=== PATIENT | female | born 1950 | race Caucasian/White ===

== ENCOUNTER 2016-10-31 19:02 | Emergency (ER) | payer MEDICARE ==
[2016-10-31 19:26] VITALS: BP 128/85
--- NOTE | 2016-10-31 20:29 | ED ---
Laceration/Wound HPI - HPI Summary HPI Summary: 66F presents with left palmar laceration near thumb today. She was cutting up a roll and sliced her hand with the knife. She denies any numbness or tingling. Her tetanus was within the past 5 years. - History of Current Complaint Stated Complaint: HAND LAC Time Seen by Provider: 10/31/16 19:43 Pain Intensity: 7 - Allergy/Home Medications Allergies/Adverse Reactions: Allergies Allergy/AdvReac Type Severity Reaction Status Date / Time Penicillins Allergy Anaphylatic Verified 10/31/16 19:28 Shock PMH/Surg Hx/FS Hx/Imm Hx Endocrine/Hematology History: Denies: Hx Diabetes Cardiovascular History: Denies: Hx Hypertension, Hx Pacemaker/ICD History: Denies: Hx Renal Disease Musculoskeletal History: Denies: Hx Osteoporosis Sensory History: Denies: Hx Hearing Aid Psychiatric History: Denies: Hx Panic Disorder - Cancer History Cancer Type, Location and Year: BASAL CELL REMOVAL UPPER CHEST Hx Chemotherapy: No Hx Radiation Therapy: No - Surgical History Surgery Procedure, Year, and Place: tonsils/adenoids Infectious Disease History: No Infectious Disease History: Denies: Traveled Outside the [place] in Last 30 Days - Family History Known Family History: Negative: Cardiac Disease - Social History Alcohol Use: None Substance Use Type: Reports: None Smoking Status (MU): Never Smoked Tobacco Review of Systems Negative: Fever Negative: Chest Pain Negative: Shortness Of Breath Positive: Other - laceration of left palm All Other Systems Reviewed And Are Negative: Yes Physical Exam Triage Information Reviewed: Yes Vital Signs On Initial Exam: Initial Vitals Temp Pulse Resp BP Pulse Ox 97.6 F 70 16 128/85 100 10/31/16 19:18 10/31/16 19:18 10/31/16 19:18 10/31/16 19:18 10/31/16 19:18 Vital Signs Reviewed: Yes Appearance: Positive: Well-Appearing Skin: Positive: Warm, Dry, Other - 4 cm laceration over 1st metacarpel Head/Face: Positive: Normal Head/Face Inspection Eyes: Positive: Normal, Conjunctiva Clear Respiratory/Lung Sounds: Positive: Clear to Auscultation, Breath Sounds Present Cardiovascular: Positive: Normal, RRR Musculoskeletal: Positive: Strength/ROM Intact - of left hand Procedures - Laceration/Wound Repair 1 Location: Other - left hand Description: Linear Anesthesia: Local, 1.0% Length, Depth and Shape: 4 cm length Betadine Prep?: Yes Irrigated w/ Saline (ccs): 100 Laceration/Wound Explored: clean Closure: Single Layer Suture Type: Prolene - 4-0 Number of Sutures: 4 Diagnostics - Vital Signs Vital Signs Temp Pulse Resp BP Pulse Ox 10/31/16 19:18 97.6 F 70 16 128/85 100 - Laboratory Lab Statement: Any lab studies that have been ordered have been reviewed, and results considered in the medical decision making process. Laceration Repair Course/Dx - Course Course Of Treatment: 66F presents with laceration of left hand. full ROM of hand. denies foreign body, tetanus up to date. placed 4 sutures and placed bandage on hand. told to return in 10-14 days. patient understands and agrees with plan - Differential Dx Differental Diagnoses: Abrasion, Avulsion, Laceration - Clinical Impression Provider Diagnoses: Laceration of left palm Discharge - Discharge Plan Condition: Good Disposition: HOME Patient Education Materials: Care For Your Stitches (ED) Referrals: Idania Garcia MD [Primary Care Provider] - Additional Instructions: Take Tylenol or ibuprofen for pain Keep area clean and dry and wrapped for 48 hours, afterwards keep band aid on area Return to ED or primary in 10-14 days to have sutures removed Return to ED if develop signs of infection such as fever, spreading redness, or pus. Images - Images Hands: 1 - 4cm laceration
== END 2016-10-31 20:40 | disposition home or self-care (01) ==
LOC: ED 19:02
DX: S61.412A Laceration without foreign body of left hand, initial encounter (principal); W26.0XXA Contact with knife, initial encounter; Y93.9 Activity, unspecified; Y92.9 Unspecified place or not applicable
CPT/HCPCS: 12002; 99281

== ENCOUNTER 2019-02-19 12:24 | Observation (INO) | payer MEDICARE ==
--- OUTSIDE RECORDS SUMMARY | 2019-02-19 12:37 | XMS REPORT | Continuity of Care Document ---
:1950 External Reference #:[id number] Author Name DiegorosetteNataly Care Team Providers Name Role Phone Idania Garcia MD Primary Care Physician Unavailable Payers Date Identification Numbers Payment Provider Subscriber Policy Number: [id number] [facility] (Medicare) Shyla Dennison PayID: [id number] [place] [address] [address] [place] [address] Effective: 2014 Policy Number: [id number] [facility] Shyla Dennison Ppo/Epo Expires: 2015 PayID: [id number] [place] [phone] Effective: 2011 Policy Number: [id number] [facility] Shyla Dennison Expires: 2014 Group Number: [id number] [facility]n [facility] PayID: [id number] [address] [place] [phone] Advance Directives Type Date Description Status Comment MOLST 04/26/2016 MOLST Current and Verified Other Directive 03/08/2011 Health Care Proxy & Living Current and Verified Will Problems Active Problems Provider Date Insomnia Yanique Regan M.D. Onset: 03/02/2012 Right bundle branch block Yanique Regan M.D. Onset: 03/11/2013 Pure hypercholesterolemia Yanique Regan M.D. Onset: 03/11/2013 Note: ASCVD 5.3 % Osteopenia Idania Garcia M.D. 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 Onset: 04/08/2015 Arthralgia of the pelvic region and thigh Jama Ellis M.D. Onset: 2014 Essential hypertension Idania Garcia M.D. Onset: 06/29/2016 Inactive Problems Depressive disorder Yanique Regan M.D. Onset: 03/02/2012 Inactive: 03/14/2016 Resolved Problems Essential hypertension Yanique Regan M.D. Onset: 03/02/2012 Resolved: 03/26/2015 Impaired fasting glycaemia Yanique Regan M.D. Onset: 03/02/2012 Resolved: 03/26/2015 Family History Date Family Member(s) Observation Comments General Cancer General Diabetes General heart problems Father due to see PMH () Father Diabetes Father Stroke Mother due to see PMH () Mother Breast Cancer Mother Hypertension Mother Hypercholesterolemia Mother Parkinson's Disease First Daughter Lymphoma Luz Siblings see above GI issues, cardiac issues Social History Type Date Description Comments Sex Unknown Marital Status Lives With Alone Occupation Retired Teacher Tobacco Use Start: Unknown Former Cigarette End: Unknown Smoker Smoking Status Reviewed: 02/11/19 Former Cigarette Smoker ETOH Use Currently consumes 5 drinks/ week alcohol Tobacco Use Start: Unknown Patient is a former 1/2 ppd intermittent End: Unknown smoker 15 yrs , quit completely 2010 Recreational Drug Use Denies Drug Use Exercise Type/Frequency Exercises regularly Allergies, Adverse Reactions, Alerts Active Allergies Reaction Severity Comments Date Penicillins Anaphylaxis Severe 10/14/2011 Medications Active Medications SIG Qnty Indications Ordering Date Provider Sulfacetamide Sodium 2 drops to L eye 4 15ml H10.9 Chente ERico 12/05/2018 times a day for 7 Sanjay Miranda 10% Solution days Shingrix intramuscular x 1 1units Idania Garcia, 08/13/2018 50mcg/0.5ML then repeat in 4 M.D. Suspension Rec months Trazodone HCL Take One Tablet By 30tabs Adeola Patel MD 04/19/2018 50mg Mouth AT Bedtime as Tablets Needed Lisinopril Take One Tablet By 90tabs Idania Garcia, 08/25/2017 5mg Mouth Every Day M.D. Tablets Blood Pressure as needed 1units I10 Idania Garcia, 04/26/2016 Monitor M.D. Digital/Automatic Misc Magnesium Citrate 1 by mouth once a Unknown day 200mg Tablets Test/Estriol Twice weekly via Unknown Compound vagina 0.5mg/6M Hair Skin And Nails daily Unknown Formula Tablets Echinacea 1 by mouth every day Unknown Comb/Arias Seal 10 days on 10 days off Capsules Glucosamine 1 daily Unknown Chondroitin Complex Capsules Ashwaghandi qd Unknown Saw Screven Extract 1 po daily Unknown 160mg Daily Total One 1 po qd Unknown Adrenal Health 1 po qd Unknown Fish Oil 1 po qd Unknown Tumeric 1 po daily Unknown 500mg History Medications Azithromycin two tabs day one, 6tabs Radha Rodriguez, 08/17/2018 - 250mg one daily till gone N.P. 10/02/2018 Tablets Lisinopril take 1 tablet 90tabs Idania Garcia, 05/11/2016 - 5mg Tablets orally once a day M.D. 12/27/2016 Cipro 1 tablet by mouth 6tabs N39.0 Tao Carlos, 03/18/2016 - 250mg Tablets twice a day x's 3 [employer] 03/21/2016 days Temazepam once at night for 30caps Idania Garcia, 04/08/2015 - 7.5mg sleep M.D. 09/29/2015 Capsules Vivotif Princess Vaccine 1 cap by mouth QS V65.9 Idania Garcia, 07/29/2014 - every other day x 4 M.D. 02/26/[address] doses 10 days before travel Ciprofloxacin-Ciprofl twice a day x 7 14tabs V65.9 Idania Garcia, 2013 - ox HCL ER days as needed for M.D. 07/29/2014 500mg Tablets travellers diarrhea ER 24HR Ciprofloxacin HCL 1 tab by mouth 14tabs Idania Garcia, 07/29/2014 - 500mg twice a day X 7 M.D. 02/26/2015 Tablets days as needed for traveller's diarrhea Lisinopril 1 by mouth every Rick Ochoa 03/12/2014 - 2.5mg day Sanjay Borrego,FACP 03/16/2014 Tablets Progesterone Cream apply topically Yanique Regan, 09/11/2013 - 2mg qday M.D. 03/12/2014 Aspirin Ec 1 po qd 90tabs Yanique Regan, 04/09/2013 - 81mg Tablets M.D. 09/11/2013 Lisinopril take 1 tablet 30tabs Rick Ochoa 06/04/2012 - 5mg Tablets orally once a day Sanjay Borrego,FACP 03/12/2014 Venlafaxine HCL 1 po qd 30tabs 311 Yanique Jass, 03/02/2012 - 37.5mg M.D. 06/04/2012 Tablets Venlafaxine HCL ER Take 1 tablet daily 30caps 311 Yanique Regan, 11/23/2011 - 75mg M.D. 06/04/2012 Caps ER 24HR Hemorrhoidal-HC Apply 1 application 30gm 455.3 Yanique Regan, 11/23/2011 - 2.5% topically to M.D. 09/29/2015 Cream affected area 3 times per day for hemorrhoids Trazodone HCL Take One Tablet By 30tabs Idania Garcia, - 50mg Mouth AT Bedtime as M.D. 04/15/2018 Tablets Needed Turmeric Curcumin 1 tab a day by Unknown - mouth 12/24/2016 Capsules Uzbek Herbs Unknown - 03/31/2016 Licorice Root Plus Off This X 5 Weeks Unknown - 06/29/2016 Caltrate/Vit D 3 1 po qd Unknown - (600) 06/29/2016 Vitamin C Unknown - W/Vitamin E 09/29/2015 Lorazepam Prn Unknown - 0.5mg Tablets 04/08/2015 Echinacea-Arias Seal 1 po daily Unknown - 03/14/2016 Adrenal 1po daily Unknown - 09/29/2015 Biotin 1 tab day Unknown - [id number] 08/13/2018 Capsules Osteo Bi-Flex Regular 1 po qd Unknown - Strength 11/11/2016 Hair/Skin/Nails 1 - 2 by mouth Unknown - every day 03/26/2015 Tablets Ashwagandha Extract Unknown - 09/29/2015 2.5% Powder Flaxseed Oil 1 by mouth every Unknown - Capsules day 09/29/2015 Evening Bethesda Oil 1 by mouth every Unknown - day 03/26/2015 2600mg Capsules Vit B Complex Unknown - 03/31/2016 Vit C 1 po qd Unknown - 250mg Tablets 03/31/2016 Calcium Citrate once daily Unknown - 1000mg 09/29/2015 Tablets Vitamin D-3 1 po qd Unknown - 1000 09/29/2015 Tablets Glucosamine 1 po qd Unknown - Chondroitin 03/26/2015 3000mg Capsules Fish Oil 1 tbsp qd Unknown - 3000mg 03/12/2014 Capsules Milk Thistle po qd Unknown - 250mg 06/29/2014 Capsules Coq-10 2 po qd 90caps Unknown - 100mg Capsules 03/26/2015 Multi-Vitamin 1 po qd Unknown - Tablets 03/14/2016 Lisinopril Take 1/2 tablet 90tabs Yanique Jass, - 10mg Tablets daily M.D. 06/04/2012 Venlafaxine HCL ER 1 po qd 90caps Yanique Regan, - M.D. 11/23/2011 150mg Caps ER 24HR Immunizations CPT Code Status Date Vaccine Lot # [id number] Given 05/09/2018 Fluzone High Dose [id number] Given 05/09/2018 Fluzone High Dose 21498 Given 05/11/2016 Influenza Virus Vaccine, Quadrivalent, Split, [id number] Preservative Free 52162 Given 04/26/2016 Pneumonia Vaccine [id number] 19813 Given 05/20/2015 Influenza Virus Vaccine, Quadrivalent, Split, Preservative Free 87206 Given 03/26/2015 Pneumococcal Conjugate Vaccine 13 Valent For [id number] Intramuscular Use 21181 Given 02/03/2015 Hepatitis B Vaccine Adult Dosage [id number] 09788 Given 02/03/2015 Hepatitis A Vaccine Adult Dosage [id number] 78109 Given 09/02/2014 Hepatitis B Vaccine Adult Dosage 41154 Given 07/29/2014 Hepatitis B Vaccine Adult Dosage [id number] 19468 Given 07/29/2014 Hepatitis A Vaccine Adult Dosage [id number] 25008 Given 05/08/2014 Flu Vaccine Split Virus Preservative Free For Indiv 3Yr Older 29166 Given 03/11/2013 Tdap - Tetanus/Diptheria/Acellular Pertussis [id number] Q2037 Given 06/04/2012 Fluvirin Im 3Yrs And Older [id number] 81764 Given 06/04/2012 Zoster (Zostavax) [id number] Vital Signs Date Vital Result Comment 02/11/2019 1:04pm Height 66.5 inches 5'6.50" Weight 143.12 lb Heart Rate 67 /min BP Systolic 112 mmHg BP Diastolic 73 mmHg Body Temperature 97.7 F O2 % BldC Oximetry 98 % BMI (Body Mass Index) 22.8 kg/m2 12/05/2018 9:10am Height 66.5 inches 5'6.50" Heart Rate 59 /min BP Systolic Sitting 136 mmHg BP Diastolic Sitting 85 mmHg Body Temperature 96.7 F O2 % BldC Oximetry 100 % 10/02/2018 3:03pm Height 66.5 inches 5'6.50" Weight 144.00 lb Heart Rate 62 /min BP Systolic 126 mmHg BP Diastolic 79 mmHg Body Temperature 98.0 F O2 % BldC Oximetry 100 % BMI (Body Mass Index) 22.9 kg/m2 08/13/2018 1:12pm Height 66.5 inches 5'6.50" Weight 142.00 lb Heart Rate 87 /min BP Systolic Sitting 130 mmHg BP Diastolic Sitting 86 mmHg O2 % BldC Oximetry 96 % BMI (Body Mass Index) 22.6 kg/m2 04/19/2018 1:32pm Height 67.5 inches 5'7.50" Weight 141.00 lb Heart Rate 67 /min BP Systolic 110 mmHg BP Diastolic 80 mmHg O2 % BldC Oximetry 97 % BMI (Body Mass Index) 21.8 kg/m2 Last Menstrual Period [id number] 01/11/2018 9:10am Weight 142.00 lb Heart Rate 74 /min BP Systolic Sitting 124 mmHg BP Diastolic Sitting 80 mmHg O2 % BldC Oximetry 98 % 09/25/2017 1:17pm Heart Rate 76 /min BP Systolic Sitting 128 mmHg L arm, 120/80 in R arm BP Diastolic Sitting 88 mmHg L arm, 120/80 in R arm 07/31/2017 11:17am Height 66.1 inches 5'6.10" Weight 145.25 lb Heart Rate 67 /min BP Systolic Sitting 136 mmHg BP Diastolic Sitting 86 mmHg O2 % BldC Oximetry 98 % BMI (Body Mass Index) 23.4 kg/m2 01/19/2017 11:32am BP Systolic 139 mmHg left BP Diastolic 85 mmHg left BP Systolic Sitting 126 mmHg right BP Diastolic Sitting 83 mmHg right 12/27/2016 11:20am Height 67.75 inches 5'7.75" Weight 143.00 lb Heart Rate 91 /min BP Systolic 100 mmHg BP Diastolic 50 mmHg Body Temperature 98.1 F O2 % BldC Oximetry 98 % BMI (Body Mass Index) 21.9 kg/m2 11/11/2016 10:33am Height 67.75 inches 5'7.75" Weight 141.38 lb Heart Rate 98 /min BP Systolic Sitting 124 mmHg BP Diastolic Sitting 80 mmHg Body Temperature 96.7 F O2 % BldC Oximetry 98 % BMI (Body Mass Index) 21.7 kg/m2 07/13/2016 2:02pm Height 67.75 inches 5'7.75" Weight 140.00 lb Heart Rate 78 /min BP Systolic Sitting 118 mmHg BP Diastolic Sitting 80 mmHg Respiratory Rate 16 /min Body Temperature 96.7 F BMI (Body Mass Index) 21.4 kg/m2 06/29/2016 11:47am Weight 139.00 lb Heart Rate 71 /min BP Systolic Sitting 122 mmHg patient cuff- 124/81 BP Diastolic Sitting 72 mmHg patient cuff- 124/81 O2 % BldC Oximetry 98 % 04/26/2016 11:21am Height 65.50 inches 5'5.50" Weight 139.25 lb Heart Rate 69 /min BP Systolic 124 mmHg BP Diastolic 80 mmHg Body Temperature 98.2 F O2 % BldC Oximetry 98 % BMI (Body Mass Index) 22.8 kg/m2 04/06/2016 12:36pm Heart Rate 60 /min BP Systolic 175 mmHg automatic cuff BP Diastolic 95 mmHg automatic cuff BP Systolic Sitting 140 mmHg manual BP Diastolic Sitting 84 mmHg manual Respiratory Rate 18 /min 04/04/2016 11:32am Weight 142.00 lb Heart Rate 52 /min BP Systolic Sitting 132 mmHg BP Diastolic Sitting 70 mmHg Body Temperature 96.8 F O2 % BldC Oximetry 98 % 04/01/2016 2:42pm Height 67 inches 5'7" Weight 142.00 lb Heart Rate 64 /min BP Systolic 142 mmHg LA BP Diastolic 88 mmHg LA BP Systolic Sitting 164 mmHg LA< reg BP Diastolic Sitting 110 mmHg LA< reg Respiratory Rate 16 /min BMI (Body Mass Index) 22.2 kg/m2 03/18/2016 2:44pm Height 67 inches 5'7" Weight 142.06 lb Heart Rate 83 /min BP Systolic 141 mmHg BP Diastolic 85 mmHg Body Temperature 100.0 F O2 % BldC Oximetry 98 % BMI (Body Mass Index) 22.2 kg/m2 03/14/2016 11:51am Height 67 inches 5'7" Weight 142.00 lb Heart Rate 64 /min BP Systolic Sitting 118 mmHg BP Diastolic Sitting 72 mmHg Body Temperature 98.0 F Pain Level 2 O2 % BldC Oximetry 98 % BMI (Body Mass Index) 22.2 kg/m2 09/30/2015 3:52pm Height 67 inches 5'7" Weight 144.00 lb Heart Rate 63 /min BP Systolic 134 mmHg BP Diastolic 78 mmHg BMI (Body Mass Index) 22.6 kg/m2 04/08/2015 10:48am Height 66 inches 5'6" Weight 140.00 lb Heart Rate 62 /min BP Systolic Sitting 133 mmHg BP Diastolic Sitting 83 mmHg Pain Level 2 BMI (Body Mass Index) 22.6 kg/m2 03/26/2015 9:07am Height 66 inches 5'6" Weight 140.50 lb Heart Rate 59 /min BP Systolic Sitting 142 mmHg BP Diastolic Sitting 70 mmHg Body Temperature 97.7 F O2 % BldC Oximetry 98 % BMI (Body Mass Index) 22.7 kg/m2 02/26/2015 2:42pm Height 66 inches 5'6" Weight 141.50 lb Heart Rate 80 /min BP Systolic Sitting 122 mmHg BP Diastolic Sitting 70 mmHg Body Temperature 98.4 F O2 % BldC Oximetry 98 % BMI (Body Mass Index) 22.8 kg/m2 07/29/2014 2:49pm Weight 141.00 lb Heart Rate 60 /min BP Systolic Sitting 110 mmHg BP Diastolic Sitting 70 mmHg Body Temperature 97.5 F 03/12/2014 9:11am Height 66 inches 5'6" Weight 138.00 lb Heart Rate 60 /min BP Systolic Sitting 118 mmHg BP Diastolic Sitting 70 mmHg BMI (Body Mass Index) 22.3 kg/m2 09/11/2013 9:24am Weight 143.00 lb Heart Rate 68 /min BP Systolic 120 mmHg BP Diastolic 74 mmHg 03/11/2013 1:09pm Height 66.5 inches 5'6.50" Weight 140.00 lb Heart Rate 74 /min BP Systolic Sitting 118 mmHg BP Diastolic Sitting 70 mmHg BMI (Body Mass Index) 22.3 kg/m2 06/04/2012 9:42am Height 66.5 inches 5'6.50" Weight 141.00 lb Heart Rate 80 /min BP Systolic Sitting 112 mmHg BP Diastolic Sitting 64 mmHg BMI (Body Mass Index) 22.4 kg/m2 03/02/2012 9:41am Height 66.5 inches 5'6.50" Weight 140.00 lb Heart Rate 68 /min BP Systolic Sitting 130 mmHg repeat 130/82 BP Diastolic Sitting 80 mmHg repeat 130/82 BMI (Body Mass Index) 22.3 kg/m2 11/23/2011 1:06pm Height 67 inches 5'7" Weight 145.00 lb Heart Rate 74 /min BP Systolic Sitting 122 mmHg BP Diastolic Sitting 76 mmHg BMI (Body Mass Index) 22.7 kg/m2 10/14/2011 10:02am Height 67 inches 5'7" Weight 150.00 lb Heart Rate 76 /min BP Systolic Sitting 122 mmHg BP Diastolic Sitting 68 mmHg BMI (Body Mass Index) 23.5 kg/m2 Results Test Date Facility Test Result H/L Range Note Lipid Profile 02/04/2019 [facility] Triglycerides 50 mg/dL 1 (Trig/Chol/HDL) [address] [place] [address] [phone] Cholesterol 235 mg/dL 2 HDL Cholesterol 85.1 mg/dL 3 LDL Cholesterol 140 mg/dL 4 Laboratory test 10/02/2018 [facility] Estradiol <40 pg/mL [address] [place] [address] [phone] Testosterone Free 10/02/2018 [facility] Free Testosterone 0.20 ng/dL 0.06- 6 & Total 101 ng/dl 0.84 [place] [address] [phone] Testosterone 13 ng/dL 8-60 7 Laboratory test 10/02/2018 [facility] Dhea Sulfate 89 g/dL 9.7-[address] [place] [address] [phone] TSH (Thyroid Stim Horm) 1.91 mcIU/mL N 0.34-5.60 Free T4 (Free Thyroxine) 0.97 ng/dL N 0.61-1.12 Estradiol, Confirmatory, S <10 pg/mL 9 Laboratory test 09/17/2018 [facility] Vitamin D 40.4 ng/mL N 20-50 finding [address] [facility] Total 25(Oh) [place] [address] [phone] Basic Metabolic 08/10/2018 [facility] Sodium 141 mmol/L N 135- 145 Panel [address] [place] [address] [phone] Potassium 4.2 mmol/L N 3.5-5.0 Chloride 103 mmol/L N 101-111 Co2 Carbon Dioxide 31 mmol/L N 22-32 Anion Gap 7 mmol/L N 2-11 Glucose 93 mg/dL N 70-100 Blood Urea Nitrogen 19 mg/dL N 6-24 Creatinine 0.97 mg/dL High 0.51-0.95 BUN/Creatinine Ratio 19.6 N 8-20 Calcium 9.8 mg/dL N 8.6-10.3 Egfr Non- 57.1 >60 Egfr 69.1 >60 10 Lipid Profile 08/10/2018 [facility] Triglycerides 86 mg/dL 11 (Trig/Chol/HDL) [address] [place] [address] [phone] Cholesterol 278 mg/dL 12 HDL Cholesterol 98.2 mg/dL 13 LDL Cholesterol 163 mg/dL 14 Comp Metabolic Panel 07/12/2017 [facility] Sodium 138 mmol/L N 133-145 [address] [place] [address] [phone] Potassium 4.4 mmol/L N 3.5-5.0 Chloride 102 mmol/L N 101-111 Co2 Carbon Dioxide 29 mmol/L N 22-32 Anion Gap 7 mmol/L N 2-11 Glucose 94 mg/dL N 70-100 Blood Urea Nitrogen 22 mg/dL N 6-24 Creatinine 0.98 mg/dL High 0.51-0.95 BUN/Creatinine Ratio 22.4 High 8-20 Calcium 9.7 mg/dL N 8.6-10.3 Total Protein 7.3 g/dL N 6.4-8.9 Albumin 4.8 g/dL N 3.2-5.2 Globulin 2.5 g/dL N 2-4 Albumin/Globulin Ratio 1.9 N 1-3 Total Bilirubin 1.10 mg/dL High 0.2-1.0 Alkaline Phosphatase 38 U/L N 34-104 Alt 20 U/L N 7-52 Ast 23 U/L N 13-39 Egfr Non- 56.6 >60 Egfr 72.8 >60 15 Lipid Profile 04/20/2016 [facility] Triglycerides 67 mg/dL N 16 (Trig/Chol/HDL) [address] [place] [address] [phone] Cholesterol 251 mg/dL N 17 HDL Cholesterol 96.5 mg/dL N 18 LDL Cholesterol 141 mg/dL N 19 Comp Metabolic Panel 04/20/2016 [facility] Sodium 141 mmol/L N 133-[address] [place] [address] [phone] Potassium 4.3 mmol/L N 3.5-5.0 Chloride 104 mmol/L N 101-111 Co2 Carbon Dioxide 30 mmol/L N 22-32 Anion Gap 7 mmol/L N 2-11 Glucose 94 mg/dL N 70-100 Blood Urea Nitrogen 18 mg/dL N 6-24 Creatinine 0.90 mg/dL N 0.51-0.95 BUN/Creatinine Ratio 20.0 N 8-20 Calcium 9.8 mg/dL N 8.6-10.3 Total Protein 6.8 g/dL N 6.4-8.9 Albumin 4.4 g/dL N 3.2-5.2 Globulin 2.4 g/dL N 2-4 Albumin/Globulin Ratio 1.8 N 1-3 Total Bilirubin 1.10 mg/dL High 0.2-1.0 Alkaline Phosphatase 41 U/L N 34-104 Alt 20 U/L N 7-52 Ast 21 U/L N 13-39 Egfr Non- 62.6 N >60 Egfr 80.6 N >60 20 Laboratory test 04/04/2016 [facility] Cytology SEE RESULT 21, [address] [place] [address] [phone] Ua Routine 04/04/2016 [facility] Ua Specific 1.005 [place] Ua PH 7 Ua Color yellow Ua Appera clear Ua WBC neg Ua Protein neg Ua Glucose norm Ua Ketones neg Ua Bilirubin neg Ua Urobilinogen norm Ua Nitrite neg Ua Occult Blood neg Urine Culture And 03/18/2016 [facility] Urine Culture SEE RESULT [address] [place] [address] [phone] Ua Routine 03/18/2016 [facility] Ua Specific 1.015 [place] Ua PH 5 Ua Color yellow Ua Appera clear Ua WBC negative Ua Protein trace Ua Glucose normal Ua Ketones negative Ua Bilirubin negative Ua Urobilinogen normal Ua Nitrite negative Ua Occult Blood moderate Laboratory test 01/19/2016 [facility] Vitamin D Total 53.0 ng/ mL High 30-[address] 25(Oh) [place] [address] [phone] Laboratory test 12/29/2015 [facility] Vitamin D, 1,25 55 pg/mL N 18-78 [address] [place] [address] [phone] NTX 12/29/2015 [facility] Urine 41 mg/dL N 25 (N-Telopeptide) [address] [place] [address] [phone] NTX 89 nmol/L N Ur NTX-Telo 25 nmol/mmol N 19 - 63 26 Laboratory 03/17/2015 [facility] TSH (Thyroid Stim 2.54 N 0.34 -5.60 test finding [address] Horm) ?IU/[place] [address] [phone] Lipid Profile 03/17/2015 [facility] Triglycerides 50 mg/dL N 27 (Trig/Chol/HDL [address] ) [place] [address] [phone] Cholesterol 238 mg/dL N 28 HDL Cholesterol 83.0 mg/dL N 29 LDL Cholesterol 145 mg/dL N 30 Basic Metabolic Panel 07/24/2014 [facility] Sodium 137 mmol/L N 133-[address] [place] [address] [phone] Potassium 3.9 mmol/L N 3.5-5.0 Chloride 102 mmol/L N 101-111 Co2 Carbon Dioxide 28 mmol/L N 22-32 Anion Gap 7 mmol/L N 2-11 Glucose 99 mg/dL N 70-100 Blood Urea Nitrogen 16 mg/dL N 6-24 Creatinine 0.83 mg/dL N 0.51-0.95 BUN/Creatinine Ratio 19.3 N 8-20 Calcium 9.7 mg/dL N 8.6-10.3 Egfr Non- 69.2 N >60 Egfr 89.0 N >60 31 Hepatitis B 07/24/2014 [facility] Hepatitis B Nonreactive N Nonreactive Vinh AB Titer [address] [place] [address] [phone] Hep B Surf AB Level < 3.10 mIU/mL N <12 32 Laboratory 07/24/2014 [facility] Hepatitis B Nonreactive N Nonreactive test finding [address] [place] [address] Antigen [phone] Laboratory 03/19/2014 [facility] TSH (Thyroid 2.32 IU/mL N 0.34-5.60 33, test finding [address] Stimulating 34 [place] [address] Horm) [phone] Free T3 2.50 pg/mL N 2.5-3.9 35 Free T4 0.78 ng/mL N 0.61-1.12 36 Basic Metabolic Panel 03/19/2014 [facility] Sodium 141 mmol/L N 133-[address] [place], [place] [id number] [phone] Potassium 4.3 mmol/L N 3.7-5.6 Chloride 107 mmol/L N 101-111 Co2 Carbon Dioxide 29 mmol/L N 22-32 Anion Gap 5 mmol/L N 2-11 Glucose 91 mg/dL N 70-100 Blood Urea Nitrogen 17 mg/dL N 6-24 Creatinine 1.11 mg/dL High 0.51-0.95 BUN/Creatinine Ratio 15.3 N 8-20 Calcium 9.3 mg/dL N 8.6-10.3 Egfr Non- 49.5 N >60 Egfr 63.6 N >60 37 Laboratory 03/19/2014 [facility] Hepatitis C Nonreactive N Nonreactive 38 test finding [address] [place] [address] [phone] Lipid Profile 03/05/2014 [facility] Triglycerides 92 mg/dL N 39 (Trig/Chol/HD [address] L) [place] [address] [phone] Cholesterol 232 mg/dL N 40 HDL Cholesterol 91.5 mg/dL N 41 LDL Cholesterol 122 mg/dL N 42 Surgical 10/31/2013 [facility] S RUN DATE: [address] 11/01/ <[place] [address] NOTE> [phone] CBC Auto Diff 06/19/2013 [facility] White Blood 7.5 10^3/uL 4.8-10. [address] Count 8 [place] [address] [phone] Red Blood Count 4.15 10^6/uL 4.0-5.4 Hemoglobin 13.3 g/dL 12.0-16.0 Hematocrit 39 % 35-47 Mean Corpuscular Volume 93 fL 80-97 Mean Corpuscular Hemoglobin 32 pg High 27-31 Mean Corpuscular HGB Conc 35 g/dL 31-36 Red Cell Distribution Width 13 % 10.5-15 Platelet Count 290 10^3/uL 150-450 Mean Platelet Volume 7 um3 Low 7.4-10.4 Abs Neutrophils 5.2 10^3/uL 1.5-7.7 Abs Lymphocytes 1.7 10^3/uL 1.0-4.8 Abs Monocytes 0.5 10^3/uL 0-0.8 Abs Eosinophils 0.1 10^3/uL 0-0.6 Abs Basophils 0 10^3/uL 0-0.2 Abs Nucleated RBC 0 10^3/uL Granulocyte % 69.3 % 38-83 Lymphocyte % 22.6 % Low 25-47 Monocyte % 7.0 % 1-9 Eosinophil % 0.8 % 0-6 Basophil % 0.3 % 0-2 Nucleated Red Blood Cells % 0 Laboratory test 06/19/2013 [facility] Ferritin 111 ng/mL 11- [address] [place] [address] [phone] Free T4 0.93 ng/mL 0.61-1.24 Free T3 2.37 pg/mL Low 2.39-6.79 TSH (Thyroid Stimulating Horm) 1.38 miu/mL 0.34-5.60 Iron & Iron Binding 06/19/2013 [facility] Iron 99 g/dL 28- [address] [place] [address] [phone] Unsaturated Iron Binding 274 g/dL Total Iron Binding Capacity 373 g/dL 250-450 % Iron Saturation 27 % 15-55 Basic Metabolic Panel 03/13/2013 [facility] Sodium 142 mmol/L 133-145 [address] [place] [address] [phone] Potassium 4.8 mmol/L 3.5-5.0 Chloride 106 mmol/L 101-111 Co2 Carbon Dioxide 30.0 mmol/L 22-32 Anion Gap 6.0 mmol/L 2-11 Glucose 98 mg/dL 70-100 Blood Urea Nitrogen 17 mg/dL 6-24 Creatinine 1.00 mg/dL 0.50-1.40 BUN/Creatinine Ratio 17.0 8-20 Calcium 9.8 mg/dL 8.1-9.9 Egfr Non- 56.0 >60 Egfr 72.0 >60 44 Lipid Profile 03/13/2013 [facility] Triglycerides 107 mg/dL 40-200 (Trig/Chol/HDL) [address] [place] [address] [phone] Cholesterol 253 mg/dL High Less than 200 HDL Cholesterol 91 mg/dL High 40-60 45 Cholesterol/HDL Ratio 2.8 Average 1-4.44 LDL Cholesterol 140.6 High Less Than 100 46 Vitamin D, 25 10/08/2012 [facility] 25-Hydroxy Vitamin <4.0 ng/ mL Hydroxy [address] [facility] D[address] [place] [address] [phone] 25-Hydroxy Vitamin D3 55 ng/mL 25-Hydroxy Vitamin D Total 55 ng/mL 47 Laboratory test 03/02/2012 [facility] Hemoglobin A1c 5.5 5-7 finding Basic Metabolic 11/30/2011 [facility] Sodium 138 mmol/L 135- 145 Panel [address] [place] [address] [phone] Potassium 4.5 mmol/L 3.5-5.0 Chloride 103 mmol/L 101-111 Co2 (Carbon Dioxide) 29.0 mmol/L 22-32 Anion Gap 6.0 mmol/L 2-11 48 Glucose 101 mg/dL High 70-100 BUN 20 mg/dL 6-24 Creatinine 1.0 mg/dL 0.50-1.40 One Over Creatinine 1.00 BUN/Creatinine Ratio 20.0 8-20 Calcium 10.0 mg/dL High 8.1-9.9 eGFR Non- 56.4 > 60 eGFR 72.5 > 60 49 Lipid Panel - 11/30/2011 [facility] CPK (Creatine 265 U/L High 0-170 50 [address]ase) [place] [address] [phone] Comp Metabolic 11/30/2011 [facility] Sodium 137 135-145 Panel 101 mmol/[place] [address] [phone] Potassium 4.5 mmol/L 3.5-5.0 Chloride 103 mmol/L 101-111 Co2 (Carbon Dioxide) 28.0 mmol/L 22-32 Anion Gap 6.0 mmol/L 2-11 51 Glucose 105 mg/dL High 70-100 BUN 19 mg/dL 6-24 Creatinine 0.9 mg/dL 0.50-1.40 One Over Creatinine 1.11 BUN/Creatinine Ratio 21.1 High 8-20 Calcium 9.8 mg/dL 8.1-9.9 Total Protein 6.6 GM/DL 6.2-8.1 Albumin 4.4 GM/DL 3.2-5.2 Globulin 2.2 GM/DL 2-4 Albumin/Globulin Ratio 2.0 1-3 Bilirubin Total 0.8 mg/dL 0.4-1.5 52 Alkaline Phosphatase 53 U/L 30-110 Alt (SGPT) 26 U/L 14-54 Ast (Sgot) 23 U/L 12-42 eGFR Non- 63.7 > 60 eGFR 81.9 > 60 53 Lipid Profile 11/30/2011 [facility] Triglyceride 79 mg/dL 40- 200 (Trig/Chol/HDL) [address] [place] [address] [phone] Cholesterol 282 mg/dL High Less Than 200 54 High Density Lipoprotein 91 mg/dL High 40-60 55 Cholesterol/HDL Ratio 3.10 AVERAGE 1-4.44 Low Density Lipoprotein 175 mg/dL High Less Than 100 56 Protime 11/30/2011 [facility] Inr 0.85 Low 0.88-1.13 57 [address] [place] [address] [phone] Protime 10.0 SEC Low 10.3-13.5 58 Laboratory test 11/30/2011 [facility] PTT (Aptt) 26.8 SEC 25.1-38.5 finding [address] [place] [address] [phone] Vitamin D,25 10/14/2011 [facility] 25-Hydroxy <4.0 ng/mL () Hydroxy [address] Vitamin D2 [place] [address] [phone] 25-Hydroxy Vitamin D3 56 ng/mL () 25-Hydroxy Vitamin D Total 56 ng/mL () 59 CBC W/Electronic 10/14/2011 [facility] White Blood 6.4 CUMM 4.8-10.[address] [place] [address] [phone] Red Cell Count 4.27 CUMM 4.2-5.4 Hemoglobin 13.5 g/dL 12.0-16.0 Hematocrit 39 % 35-47 Mean Corpuscular Volume 92 um3 79-97 Mean Corpuscular Hemoglob 32 pg High 27-31 Mean Corpuscular HGB Cone 34 g/dL 32-36 Redcell Distribution WDTH 13 % 10.5-15 Platelet Count 304 CUMM 150-450 Mean Platelet Volume 8.5 um3 7.4-10.4 Gran % 59.2 % 38-83 Lymph % 31.1 % 25-47 Mononuclear % 8.1 % 1-9 Eosinophil % 1.1 % 0-6 Basophil % 0.5 % 0-2 Abs Lymphs 2.0 1.0-4.8 Abs Mononuclear 0.5 0-0.8 Absolute Neutrophil Count 3.8 1.5-7.7 Abs Eosinophils 0.1 0-0.6 Abs Basophils 0 0-0.2 Laboratory test 10/14/2011 [facility] Ferritin 114 NG/ML 11.0 -307 finding [address] [place] [address] [phone] Ua Routine 10/14/2011 [facility] Ua Color YELLOW Yellow [address] [place] [address] [phone] Appearance-Urine CLEAR Clear Specific [place]-Ur 1.015 1.010-1.030 Esterase-Urine NEGATIVE Negative Nitrite NEGATIVE Negative Gmdnxgzwksdi-Jw-OKG NEGATIVE Negative Protein-Urine NEGATIVE Negative PH-Urine 7.5 5-9 Blood-Urine NEGATIVE Negative Ketones-Urine NEGATIVE Negative Bilirubin-Ur NEGATIVE Negative Glucose-Urine NEGATIVE Negative Laboratory test 10/14/2011 [facility] TSH 2.34 MIU/ML 0.34- 5.60 finding [address] [place] [address] [phone] Thyroxine Free 0.72 ng/dL 0.61-1.24 Vitamin B12 And 10/14/2011 [facility] Vitamin B12 595 pg/mL 180-914 Folate Serum [address] [place] [address] [phone] Folic Acid > 25.6 NG/ML See Below 60 Iron And Tibc Serum 10/14/2011 [facility] Iron Total 117 g/dL 28-170 [address] [place] [address] [phone] Unsaturated Iron Binding 308 g/dL Total Iron Binding Capacity 425 g/dL 250-450 % Iron Saturation 28 % 15-55 1 Desirable: <150 Borderline High: 150-199 High: 200-499 Very High: >500 2 Desirable: <200 Borderline High: 200-239 High: >239 3 Low: <40 Desirable: 40-60 High: >60 4 Desirable: <100 Near Optimal: 100-129 Borderline High: 130-159 High: 160-189 Very High: >189 5 Estradiols <40 pg/mL are sent to a reference lab for low range testing. Postmenopausal Females < 20 Ovulating females: by day in cycle relative to LH Peak Follicular phase - 12 10-50 - 4 60-200 Mid-cycle - 1 120-375 Luteal phase + 2 50-155 + 6 60-260 + 12 15-115 6 ADDITIONAL INFORMATION Testing performed by [facility]. This test was developed and its performance characteristics determined by [facility] in a manner consistent with CLIA requirements. This test has not been cleared or approved by the U.S. Food and Drug Administration. 7 ADDITIONAL INFORMATION Testing performed by Liquid Chromatography-Tandem Mass Spectrometry (LC-MS/MS). This test was developed and its performance characteristics determined by [facility] in a manner consistent with CLIA requirements. This test has not been cleared or approved by the U.S. Food and Drug Administration. Test Performed by: [facility] - [address] [address] 8 Test Performed by: [facility] - [address] [address] 9 REFERENCE VALUE Premenopausal: 15-350 (E2 levels vary widely through the menstrual cycle.) Postmenopausal: <10 ADDITIONAL INFORMATION This test was developed and its performance characteristics determined by [facility] in a manner consistent with CLIA requirements. This test has not been cleared or approved by the U.S. Food and Drug Administration. Test Performed by: [facility] [address] 10 Because ethnic data is not always readily available, this report includes an eGFR for both -Americans and non- Americans. The National Kidney Disease Education Program (NKDEP) does not endorse the use of the MDRD equation for patients that are not between the ages of 18 and 70, are , have extremes of body size, muscle mass, or nutritional status, or are non- or non-. According to the National Kidney Foundation, irrespective of diagnosis, the stage of the disease is based on the level of kidney function: Stage Description GFR(mL/min/1.73 m(2)) 1 Kidney damage with normal or decreased GFR 90 2 Kidney damage with mild decrease in GFR 60-89 3 Moderate decrease in GFR 30-59 4 Severe decrease in GFR 15-29 5 Kidney failure <15 (or dialysis) 11 Desirable: <150 Borderline High: 150-199 High: 200-499 Very High: >500 12 Desirable: <200 Borderline High: 200-239 High: >239 13 Low: <40 Desirable: 40-60 High: >60 14 Desirable: <100 Near Optimal: 100-129 Borderline High: 130-159 High: 160-189 Very High: >189 15 Because ethnic data is not always readily available, this report includes an eGFR for both -Americans and non- Americans. The National Kidney Disease Education Program (NKDEP) does not endorse the use of the MDRD equation for patients that are not between the ages of 18 and 70, are , have extremes of body size, muscle mass, or nutritional status, or are non- or non-. According to the National Kidney Foundation, irrespective of diagnosis, the stage of the disease is based on the level of kidney function: Stage Description GFR(mL/min/1.73 m(2)) 1 Kidney damage with normal or decreased GFR 90 2 Kidney damage with mild decrease in GFR 60-89 3 Moderate decrease in GFR 30-59 4 Severe decrease in GFR 15-29 5 Kidney failure <15 (or dialysis) 16 Desirable <150 Borderline high 150-199 High 200-499 Very High >500 17 Desirable <200 Borderline high 200-239 High >239 18 Low <40 Desirable: 40-60 High: >60 19 Desirable: <100 mg/dL Near Optimal: 100-129 mg/dL Borderline High: 130-159 mg/dL High: 160-189 mg/dL Very High: >189 mg/dL 20 Because ethnic data is not always readily available, this report includes an eGFR for both -Americans and non- Americans. The National Kidney Disease Education Program (NKDEP) does not endorse the use of the MDRD equation for patients that are not between the ages of 18 and 70, are , have extremes of body size, muscle mass, or nutritional status, or are non- or non-. According to the National Kidney Foundation, irrespective of diagnosis, the stage of the disease is based on the level of kidney function: Stage Description GFR(mL/min/1.73 m(2)) 1 Kidney damage with normal or decreased GFR 90 2 Kidney damage with mild decrease in GFR 60-89 3 Moderate decrease in GFR 30-59 4 Severe decrease in GFR 15-29 5 Kidney failure <15 (or dialysis) 21 [id number] 22 SEE RESULT BELOW Name: SHYLA DENNISON : [address]: Tao Carlos [employer] Acct: [id number] Unit: [id number] AGE: 66 Location: [facility] Re04/04/16 SEX: F Status: REG REF SPEC: [id number] ELAINE: 04/04/16-[address]: Tao Carlos [employer] REQ: [id number] RECD: 04/04/16 STATUS: SOUT _ ORDERED: THIN PREP NON G COMMENTS: [id number] FINAL DIAGNOSIS Urine, voided: Negative for malignant cells. URINE VOID GROSS DESCRIPTION 10 mls of clear yellow voided urine. Signed (signature on file) Shahbaz Ford MD 1547 END OF REPORT * ML=Testing performed at Main Lab DEPARTMENT OF PATHOLOGY, [address] [place] [address] Shahbaz Ford M.D. Director [facility] # [id number] 23 SEE RESULT BELOW Name: SHYLA DENNISON : [address]: Tao Carlos [employer] Acct: [id number] Unit: [id number] AGE: 66 Location: [facility] Re03/18/16 SEX: F Status: REG REF SPEC: [id number] ELAINE: 03/18/16-[address]: Tao Carlos [employer] REQ: [id number] RECD: 03/18/16 STATUS: COMP _ SOURCE: URINE SPDESC: ORDERED: Urine Culture COMMENTS: [id number] Procedure Result Reported Site Urine Culture Final 03/20/16- 0847 ML No growth of clinically significant organisms * ML - MAIN LAB ([facility]) . END OF REPORT * ML=Testing performed at Main Lab DEPARTMENT OF PATHOLOGY, [address] [place] [address] Shahbaz Ford M.D. Director [facility] # [id number] 24 Test Performed by: [address] [address] Die Finisher: Marcos Nielsen II, M.D., Ph.D. 25 Test Performed by: [place] [address] Die Finisher: Donna Sutton, Ph.D. 26 ADDITIONAL INFORMATION Units of measurement are: nmol Bone Collagen Equivalents/mmol Creatinine 27 Desirable <150 Borderline high 150-199 High 200-499 Very High >500 28 Desirable <200 Borderline high 200-239 High >239 29 Low <40 Desirable: 40-60 High: >60 30 Desirable: <100 mg/dL Near Optimal: 100-129 mg/dL Borderline High: 130-159 mg/dL High: 160-189 mg/dL Very High: >189 mg/dL 31 Because ethnic data is not always readily available, this report includes an eGFR for both -Americans and non- Americans. The National Kidney Disease Education Program (NKDEP) does not endorse the use of the MDRD equation for patients that are not between the ages of 18 and 70, are , have extremes of body size, muscle mass, or nutritional status, or are non- or non-. According to the National Kidney Foundation, irrespective of diagnosis, the stage of the disease is based on the level of kidney function: Stage Description GFR(mL/min/1.73 m(2)) 1 Kidney damage with normal or decreased GFR 90 2 Kidney damage with mild decrease in GFR 60-89 3 Moderate decrease in GFR 30-59 4 Severe decrease in GFR 15-29 5 Kidney failure <15 (or dialysis) 32 This assay does not differentiate between reactivity due to a vaccine-induced immune response or an immune response induced by infection with HBV. 33 FASTING 10 HOUR FASTING 34 FASTING 10 HOUR 35 FASTING 10 HOUR 36 FASTING 10 HOUR 37 Because ethnic data is not always readily available, this report includes an eGFR for both -Americans and non- Americans. The National Kidney Disease Education Program (NKDEP) does not endorse the use of the MDRD equation for patients that are not between the ages of 18 and 70, are , have extremes of body size, muscle mass, or nutritional status, or are non- or non-. According to the National Kidney Foundation, irrespective of diagnosis, the stage of the disease is based on the level of kidney function: Stage Description GFR(mL/min/1.73 m(2)) 1 Kidney damage with normal or decreased GFR 90 2 Kidney damage with mild decrease in GFR 60-89 3 Moderate decrease in GFR 30-59 4 Severe decrease in GFR 15-29 5 Kidney failure <15 (or dialysis) 38 FASTING 39 Desirable <150 Borderline high 150-199 High 200-499 Very High >500 40 Desirable <200 Borderline high 200-239 High >239 41 Low <40 Desirable: 40-60 High: >60 42 Desirable <100 Near Optimal 100-129 Borderline high 130-159 High 160-189 Very High >189 43 RUN DATE: 11/01/13 [facility] LAB LIVE PAGE 1 RUN TIME: 2929 [address] [place], [place] [address] Specimen Inquiry Name: SHYLA DENNISON : [address]: Jaylen Kahn MD Acct: [id number] Unit: [id number] AGE: 63 Location: ENDO Re10/31/13 SEX: F Status: REG REF SPEC: [id number] ELAINE: 10/31/13- SUBM DR: Jaylen Kahn MD REQ: [id number] RECD: 10/31/13 STATUS: DUSTIN MITCHELL DR: Yanique Regan MD _ ORDERED: LEVEL IV FINAL DIAGNOSIS Colon, at 30 cm., biopsy: Colonic mucosa with surface hyperplastic change. CLINICAL HISTORY Screening colonoscopy with history of polyps POST-OPERATIVE DIAGNOSIS Screening colonoscopy to cecum - polyp at 30 cm., biopsied; tics GROSS DESCRIPTION The specimen is received in formalin labeled Shyla Dennison, Biopsy Colon Polyp at 30 cm., and consists of a 0.2 x 0.2 x 0.2 cm. rivera-pink polypoid soft tissue fragment. Submitted entirely, one cassette. Signed (signature on file) Mignon Cox MD 1805 END OF REPORT * ML=Testing performed at Main Lab DEPARTMENT OF PATHOLOGY, [address] [place] [address] Shahbaz Ford M.D. Director [facility] Permit #[id number] 44 Because ethnic data is not always readily available, this report includes an eGFR for both -Americans and non- Americans. The National Kidney Disease Education Program (NKDEP) does not endorse the use of the MDRD equation for patients that are not between the ages of 18 and 70, are , have extremes of body size, muscle mass, or nutritional status, or are non- or non-. According to the National Kidney Foundation, irrespective of diagnosis, the stage of the disease is based on the level of kidney function: Stage Description GFR(mL/min/1.73 m(2)) 1 Kidney damage with normal or decreased GFR 90 2 Kidney damage with mild decrease in GFR 60-89 3 Moderate decrease in GFR 30-59 4 Severe decrease in GFR 15-29 5 Kidney failure <15 (or dialysis) 45 HDL Interpretation: Undesirable: High Risk: Less than 40 mg/dL Desirable: Low Risk: Greater than 60 mg/dL 46 LDL Interpretation: Low Risk Optimal Level: LDL Less than 100 mg/dL Near or Above Optimal: LDL 100-129 mg/dL Borderline High Risk: LDL 130-159 mg/dL High Risk: LDL 160-189 mg/dL Very High Risk: LDL Greater than 189 mg/dL 47 -- REFERENCE VALUE -- 25-HYDROXY D TOTAL (D2+D3) Optimum levels in the normal population are 25-80 Test Performed by: [address] [address] Die Finisher: Toy Brandt III, M.D. 48 Anion gap measurement may be of limited value in the presence of any alkalosis, especially in a combined acid base disorder. . 49 Because ethnic data is not always readily available, this report includes an eGFR for both -Americans and non- Americans. The National Kidney Disease Education Program (NKDEP) does not endorse the use of the MDRD equation for patients that are not between the ages of 18 and 70, are , have extremes of body size, muscle mass, or nutritional status, or are non- or non-. According to the National Kidney Foundation, irrespective of diagnosis, the stage of the disease is based on the level of kidney function: Stage Description GFR(mL/min/1.73 m(2)) 1 Kidney damage with normal or decreased GFR 90 2 Kidney damage with mild decrease in GFR 60-89 3 Moderate decrease in GFR 30-59 4 Severe decrease in GFR 15-29 5 Kidney failure <15 (or dialysis) 50 FASTING 51 Anion gap measurement may be of limited value in the presence of any alkalosis, especially in a combined acid base disorder. . 52 A metabolite of Naproxen, O-desmethylnaproxen, has been shown to interfere with the Jendrassik-Krystyna method for measuring total bilirubin. Samples from patients who have taken Naproxen have shown spurious elevation in total bilirubin levels. 53 Because ethnic data is not always readily available, this report includes an eGFR for both -Americans and non- Americans. The National Kidney Disease Education Program (NKDEP) does not endorse the use of the MDRD equation for patients that are not between the ages of 18 and 70, are , have extremes of body size, muscle mass, or nutritional status, or are non- or non-. According to the National Kidney Foundation, irrespective of diagnosis, the stage of the disease is based on the level of kidney function: Stage Description GFR(mL/min/1.73 m(2)) 1 Kidney damage with normal or decreased GFR 90 2 Kidney damage with mild decrease in GFR 60-89 3 Moderate decrease in GFR 30-59 4 Severe decrease in GFR 15-29 5 Kidney failure <15 (or dialysis) 54 CHOLESTEROL INTERPRETATION: Desirable: Less than 200 MG/DL Borderline-High Risk: 200-239 MG/DL High-Risk: 240 MG/DL and over 55 HDL INTERPRETATION: Undesirable: High Risk: Less than 40 MG/DL Desirable: Low Risk: Greater than 60 MG/DL 56 LDL INTERPRETATION: Low Risk Optimal Level: LDL Less than 100 MG/DL Near or Above Optimal: LDL 100-129 MG/DL Borderline High Risk: LDL 130-159 MG/DL High Risk: LDL 160-189 MG/DL Very High Risk: LDL Greater than 189 MG/DL 57 Recommended INR for Patients on Oral Anticoagulants Prophylaxis 2.0 - 3.0 Treatment of thrombosis 2.0 - 3.0 Prevention of embolism 2.0 - 3.0 Prevention of embolism from prosthetic heart valves 2.5 - 3.5 58 DIAGNOSIS,TREATMENT,AND THERAPY MUST BE BASED ON THE INR VALUE ALONE. 59 -- REFERENCE VALUE -- 25-HYDROXY D TOTAL (D2+D3) Optimum levels in the normal population are 25-80 Test Performed by: [facility] Dpt of Lab Med and Pathology [address] [place] [address] Die Finisher: Toy Brandt III, M.D. 60 Please note: New reference range, effective 08/04/11 NORMAL REFERENCE RANGE: GREATER THAN 4.1 NG/ML Procedures Date Code Description Status 09/26/2018 [id number] Bone Mineral Density Test Completed 04/06/2018 [id number] Mammogram Completed 02/02/2017 [id number] Mammogram Completed 04/19/2016 81794 ECHO Stress Test Incl Perf Contiuous ekg Monitoring Completed W/Phys Superv 04/01/2016 88603 EKG Tracing & Interpretation Completed 03/14/2016 31389 EKG Tracing & Interpretation Completed 01/25/2016 [id number] Mammogram Completed 03/30/2015 [id number] Bone Mineral Density Test Completed 01/22/2015 [id number] Mammogram Completed 01/08/2015 [id number] Mammogram Completed 02/24/2014 [id number] Diabetic Retinal Eye Exam Completed 01/23/2014 [id number] Diabetic Retinal Eye Exam Completed 01/21/2014 [id number] Mammogram Completed 10/31/2013 [id number] Colonoscopy Completed 04/04/2013 [id number] Bone Mineral Density Test Completed 03/11/2013 38663 EKG Tracing & Interpretation Completed 01/08/2013 [id number] Mammogram Completed 03/02/2012 85084 EKG Tracing & Interpretation Completed 12/21/2011 [id number] Mammogram Completed 08/14/2010 [id number] Colonoscopy Completed Encounters Type Date Location Provider Dx Diagnosis Office Visit 02/11/2019 [facility] Internal Idania Garcia, I10 Essential ( primary) 1:00p Medicine - Lei Grace hypertension E78.5 Hyperlipidemia, unspecified Office Visit 12/05/2018 9:20a [facility] Internal Chente Ontiveros H10.9 Unspecified Medicine - Sanjay Miranda conjunctivitis Ccmob Office Visit 10/02/2018 3:00p [facility] Mary Lou R63.5 Abnormal weight gain [facility] MADELIN Ramires F51.01 Primary insomnia N95.1 Menopausal and female climacteric states Office Visit 08/13/2018 DoNotUse [facility] Internal Idania Z00.00 Encntr for 1:00p Justino Garcia M.D. 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 nonspecific skin eruption Office Visit 07/31/2017 DoNotUse [facility] Internal Idania Z00.00 Encntr for 11:10a Justino Garcia M.D. general adult medical exam w/o abnormal findings I10 Essential (primary) hypertension G47.09 Other insomnia [facility]10 Essential Visit 11:20a Justino C (primary) hypertension Office 12/27/2016 DoNotUse [facility] Internal Idania I10 Essential Visit 11:10a Justino Garcia M.D. (primary) hypertension Office 11/11/2016 [facility] Internal Medicine - Tao Z48.02 Encounter for Visit 10:40a [address] DONNA Carlos removal of sutures Office 07/13/2016 [facility] K64.5 Perianal venous Visit 2:00p Leann Deras thrombosis MD Office [facility] I10 Essential Visit 11:50a Justino Garcia M.D. (primary) hypertension Office [facility]/26[facility] Idania Z00.00 Encntr for Visit 11:10a Justino Garcia M.D. general adult medical exam w/o abnormal findings E78.0 Pure hypercholesterolemia I10 Essential (primary) hypertension Z23 Encounter for immunization Office Visit 04/06/2016 12:00p [facility] Nurse Visit R07.9 Chest pain, Of [facility] IC unspecified I10 Essential (primary) hypertension Office Visit 04/04/2016 11:20a [facility] Internal Tao Cralos, R35.0 Frequency of Medicine - Suite [employer] micturition R Office Visit 04/01/2016 3:00p [facility] Rick SRico R07.9 Chest pain , Jeffers, DO unspecified FACC R94.31 Abnormal electrocardiogram [ECG] [EKG] Office Visit 03/18/2016 2:40p [facility] Internal Tao Carlos, N39.0 Urinary tract Medicine - Suite [employer] infection, site R not specified Office Visit 03/14/2016 11:50a [facility] Internal Idania M54.14 Radiculopathy, Medicine - Lei Garcia M.D. 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 General Medical Routine AT Health Care Facility 733.90 Bone & Cartilage Disorder Unspec 309.28 Adjustment Disorder With Anxiety/Depression 272.0 Hypercholesterolemia Pure 719.45 Pain Joint Pelvic Region & Thigh V03.82 Streptococcus Pneumoniae Vaccination Spec Other Office Visit 02/26/2015 2:30p [facility] Internal Tao Carlos, 796.2 Blood Pressure Medicine - [employer] Reading Elevated Suite R W/O Hypertension 300.00 Anxiety State Unspec Office Visit 07/29/2014 2:50p [facility] Internal Idania V65.9 Consultation Unspec Mundo - Sanjay Garcia Reason Ccmob 401.1 Hypertension Benign 790.6 Abnormal Blood Chemistry Other V05.3 Viral Hepatitis Vaccination & Inoculation Office Visit 03/12/2014 9:10a [facility] Internal Idania V70.0 Examination Medicine - Lei Garcia M.D. General Medical Routine AT Health Care Facility 401.1 Hypertension Benign 272.0 Hypercholesterolemia Pure 790.6 Abnormal Blood Chemistry Other Office Visit 09/11/2013 9:20a [facility] Internal Yanique Regan, V76.51 Special Medicine - Ccmob M.DRico Screening For Malignant Neoplasms Colon 401.9 Hypertension Unspec 272.0 Hypercholesterolemia Pure Office Visit 03/11/2013 1:00p [facility] Luisa Chanel Jass, V70.0 [facility] General [facility] Routine AT [facility] 733.90 Bone & Cartilage Disorder Unspec V06.1 Gzuuuzekae-Gezplst-Rdrbgits Combined (DTaP) 426.4 Right Bundle Branch Block 272.0 Hypercholesterolemia Pure 401.9 Hypertension Unspec 793.19 Other Nonspec Abnormal Finding Of Lung Field Office Visit 06/04/2012 9:40a [facility] Luisa Chanel Regan, 401.9 Hypertension Unspec Medicine - M.D. [facility] 311 Depressive Disorder Not Elsewhere Spec V04.81 Need For Prophylactic Vaccination & Inoculation/Influenza V04.89 Need For Prophylactic Vaccination & Inoculation Other Virus Office Visit 03/02/2012 10:00a [facility] Luisa Chanel Jass, 401.9 Hypertension Unspec Medicine - M.D. [facility] 311 Depressive Disorder Not Elsewhere Spec 790.21 Impaired Fasting Glucose V70.0 Examination General Medical Routine AT [facility] 780.52 Insomnia Unspecified 733.90 Bone & Cartilage Disorder Unspec 272.0 Hypercholesterolemia Pure Office Visit 11/23/2011 1:00p [facility] Luisa Yanique Jass, 782.7 [facility] Spontaneous 401.9 Hypertension Unspec 455.3 Hemorrhoids External W/O Complication 311 Depressive Disorder Not Elsewhere Spec Office Visit 10/14/2011 10:00a [facility] Luisa Regan, 268.9 [facility] Deficiency Unspec 281.9 Anemia Deficiency Unspec 401.9 Hypertension Unspec 311 Depressive Disorder Not Elsewhere Spec 272.4 Hyperlipidemia Other Unspec Plan of Treatment Future Appointment(s):08/19/2019 1:00 pm - Idania Garcia M.D. at [facility] Internal [facility]-[place]83/01/2019 - Idania Garcia M.D.I10 Essential ( primary) hypertensionFollow up:july for medicare [id number] Hyperlipidemia, unspecifiedComments:controlled with diet /exercise
--- OUTSIDE RECORDS SUMMARY | 2019-02-19 12:37 | XMS REPORT | Continuity of Care Document ---
:1950 External Reference #:[id number] Author Name Gaby Stallings Care Team Providers Name Role Phone Idania Garcia MD Primary Care Physician Unavailable Payers Date Identification Numbers Payment Provider Subscriber Policy Number: [id number] [facility] (Medicare) Shyla Dennison PayID: [id number] [place] [address] [address] [place] [address] Effective: 2014 Policy Number: [id number] [facility] Shyla Dennison Ppo/Epo Expires: 2015 PayID: [id number] [address] [place] [phone] Effective: 2011 Policy Number: [id number] [facility] Shyla Dennison Expires: 2014 Group Number: [id number] [facility]n [facility] PayID: [id number] 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 days Temazepam once at night for [...] day by Unknown - mouth 12/24/2016 Capsules Citizen Of The [place] Herbs Unknown - 03/31/2016 Licorice Root Plus Off This X 5 Weeks Unknown - 06/29/2016 Caltrate/Vit D 3 1 po qd Unknown - (600) 06/29/2016 Vitamin C Unknown - W/Vitamin E 09/29/2015 Lorazepam Prn Unknown - 0.5mg Tablets 04/08/2015 Echinacea-Arias Seal 1 po daily Unknown - 03/14/2016 Adrenal 1po daily Unknown - 09/29/2015 Biotin 1 tab day Unknown - [id number] 08/13/2018 Capsules Osteo Bi-Flex Regular 1 po qd Unknown - Strength 11/11/2016 Hair/Skin/Nails 1 - 2 by mouth Unknown - every day 03/26/2015 Tablets Ashwagandha Extract Unknown - 09/29/2015 2.5% Powder Flaxseed Oil 1 by mouth every Unknown - Capsules day 09/29/2015 Evening Adak Oil 1 by mouth every Unknown - [...] CPT Code Status Date Vaccine Lot # [id number] Given 05/09/2018 Fluzone High Dose 46866 Given 05/09/2018 Fluzone High Dose 48375 Given 05/11/2016 Influenza Virus Vaccine, Quadrivalent, Split, [id number] Preservative Free 51098 Given 04/26/2016 Pneumonia Vaccine [id number] 80889 Given 05/20/2015 Influenza Virus Vaccine, Quadrivalent, Split, Preservative Free 95436 Given 03/26/2015 Pneumococcal Conjugate Vaccine 13 Valent For [id number] Intramuscular Use 99126 Given 02/03/2015 Hepatitis B Vaccine Adult Dosage [id number] 01905 Given 02/03/2015 Hepatitis A Vaccine Adult Dosage [id number] 35871 Given 09/02/2014 Hepatitis B Vaccine Adult Dosage 58483 Given 07/29/2014 Hepatitis B Vaccine Adult Dosage [id number] 68293 Given 07/29/2014 Hepatitis A Vaccine Adult Dosage [id number] 67351 Given 05/08/2014 Flu Vaccine Split Virus Preservative Free For Indiv 3Yr Older 42666 Given 03/11/2013 Tdap - Tetanus/Diptheria/Acellular Pertussis [id number] Given 06/04/2012 Fluvirin Im 3Yrs And Older [id number] 87691 Given 06/04/2012 Zoster (Zostavax) [id number] Vital Signs Date Vital Result Comment 02/19/2019 10:26am Height 66.5 inches 5'6.50" Weight 139.00 lb Heart Rate 103 /min BP Systolic Sitting 121 mmHg BP Diastolic Sitting 74 mmHg Body Temperature 100.0 F O2 % BldC Oximetry 98 % BMI (Body Mass Index) 22.1 kg/m2 02/11/2019 1:04pm Height 66.5 inches 5'6.50" Weight [...] Mass Index) 21.8 kg/m2 Last Menstrual Period [id number] 01/11/2018 9:10am Weight 142.00 lb Heart Rate [...] Result H/L Range Note Lipid Profile 02/04/2019 Triglycerides 50 mg/dL 1 (Trig/Chol/HDL) [address] [place] [address] [phone] Cholesterol 235 mg/dL 2 HDL Cholesterol 85.1 mg/dL 3 LDL Cholesterol 140 mg/dL 4 Laboratory test 10/02/2018 Estradiol <40 pg/mL [address] [place] [address] [phone] Testosterone Free 10/02/2018 Free Testosterone 0.20 ng/dL 0.06- 6 & Total [address] ng/dl 0.84 [place] [address] [phone] Testosterone 13 ng/dL 8-60 7 Laboratory test 10/02/2018 Dhea Sulfate 89 g/dL 9.7-159 [address] [place] [address] [phone] TSH (Thyroid Stim Horm) 1.91 mcIU/mL N 0.34-5.60 Free T4 (Free Thyroxine) 0.97 ng/dL N 0.61-1.12 Estradiol, Confirmatory, S <10 pg/mL 9 Laboratory test 09/17/2018 Vitamin D 40.4 ng/mL N 20-50 finding 101 Total 25(Oh) [place] [address] [phone] Basic Metabolic 08/10/2018 Sodium 141 mmol/L N 135- [address] [place] [address] [phone] Potassium 4.2 mmol/L N 3.5-5.0 Chloride 103 mmol/L N 101-111 Co2 Carbon Dioxide 31 mmol/L N 22-32 Anion Gap 7 mmol/L N 2-11 Glucose 93 mg/dL N 70-100 Blood Urea Nitrogen 19 mg/dL N 6-24 Creatinine 0.97 mg/dL High 0.51-0.95 BUN/Creatinine Ratio 19.6 N 8-20 Calcium 9.8 mg/dL N 8.6-10.3 Egfr Non- 57.1 >60 Egfr 69.1 >60 10 Lipid Profile 08/10/2018 Triglycerides 86 mg/dL 11 (Trig/Chol/HDL) [address] [place] [address] [phone] Cholesterol 278 mg/dL 12 HDL Cholesterol 98.2 mg/dL 13 LDL Cholesterol 163 mg/dL 14 Comp Metabolic Panel 07/12/2017 Sodium 138 mmol/L N 133-145 [address] [place] [address] [phone] Potassium 4.4 mmol/L N 3.5-5.0 Chloride 102 [...] Egfr 72.8 >60 15 Lipid Profile 04/20/2016 Triglycerides 67 mg/dL N 16 (Trig/Chol/HDL) [address] [place] [address] [phone] Cholesterol 251 mg/dL N 17 HDL Cholesterol 96.5 mg/dL N 18 LDL Cholesterol 141 mg/dL N 19 Comp Metabolic Panel 04/20/2016 Sodium 141 mmol/L N 133-[address] [place] [address] [phone] Potassium 4.3 mmol/L N 3.5-5.0 Chloride 104 [...] 80.6 N >60 20 Laboratory test 04/04/2016 Cytology SEE RESULT 21, [address] [place] [address] [phone] Ua Routine 04/04/2016 Food Demonstrator In House Ua Specific 1.005 [place] Ua PH 7 Ua Color yellow Ua Appera clear Ua WBC neg Ua Protein neg Ua Glucose norm Ua Ketones neg Ua Bilirubin neg Ua Urobilinogen norm Ua Nitrite neg Ua Occult Blood neg Urine Culture And 03/18/2016 Urine Culture SEE RESULT [address] BELOW [place], [place] [id number] [phone] Ua Routine 03/18/2016 Food Demonstrator In House Ua Specific 1.015 [place] Ua PH 5 Ua Color yellow Ua Appera clear Ua WBC negative Ua Protein trace Ua Glucose normal Ua Ketones negative Ua Bilirubin negative Ua Urobilinogen normal Ua Nitrite negative Ua Occult Blood moderate Laboratory test 01/19/2016 Vitamin D Total 53.0 ng/ mL High 30-[address] 25(Oh) [place] [address] [phone] Laboratory test 12/29/2015 Vitamin D, 1,25 55 pg/mL N 18-78 [address] [place] [address] [phone] NTX 12/29/2015 Urine 41 mg/dL N 25 (N-Telopeptide) [address] [place] [address] [phone] NTX 89 nmol/L N Ur NTX-Telo 25 nmol/mmol N 19 - 63 26 Laboratory 03/17/2015 TSH (Thyroid Stim 2.54 N 0.34 -5.60 test finding [address] Horm) ?IU/mL [place], [place] [id number] [phone] Lipid Profile 03/17/2015 Triglycerides 50 mg/dL N 27 (Trig/Chol/HDL [address] ) [place] [address] [phone] Cholesterol 238 mg/dL N 28 HDL Cholesterol 83.0 mg/dL N 29 LDL Cholesterol 145 mg/dL N 30 Basic Metabolic Panel 07/24/2014 Sodium 137 mmol/L N 133-[address] [place] [address] [phone] Potassium 3.9 mmol/L N 3.5-5.0 Chloride 102 mmol/L N 101-111 Co2 Carbon Dioxide 28 mmol/L N 22-32 Anion Gap 7 mmol/L N 2-11 Glucose 99 mg/dL N 70-100 Blood Urea Nitrogen 16 mg/dL N 6-24 Creatinine 0.83 mg/dL N 0.51-0.95 BUN/Creatinine Ratio 19.3 N 8-20 Calcium 9.7 mg/dL N 8.6-10.3 Egfr Non- 69.2 N >60 Egfr 89.0 N >60 31 Hepatitis B 07/24/2014 Hepatitis B Nonreactive N Nonreactive Vinh AB Titer [address] [place] [address] [phone] Hep B Surf AB Level < 3.10 mIU/mL N <12 32 Laboratory 07/24/2014 Hepatitis B Nonreactive N Nonreactive test finding [address] [place] [address] Antigen [phone] Laboratory 03/19/2014 TSH (Thyroid 2.32 IU/mL N 0.34-5.60 33, test finding [address] Stimulating [address] [place] [address] Horm) [phone] Free T3 2.50 pg/mL N 2.5-3.9 35 Free T4 0.78 ng/mL N 0.61-1.12 36 Basic Metabolic Panel 03/19/2014 Sodium 141 mmol/L N 133-[address] [place] [address] [phone] Potassium 4.3 mmol/L N 3.7-5.6 Chloride 107 mmol/L N 101-111 Co2 Carbon Dioxide 29 mmol/L N 22-32 Anion Gap 5 mmol/L N 2-11 Glucose 91 mg/dL N 70-100 Blood Urea Nitrogen 17 mg/dL N 6-24 Creatinine 1.11 mg/dL High 0.51-0.95 BUN/Creatinine Ratio 15.3 N 8-20 Calcium 9.3 mg/dL N 8.6-10.3 Egfr Non- 49.5 N >60 Egfr 63.6 N >60 37 Laboratory 03/19/2014 Hepatitis C Nonreactive N Nonreactive 38 test finding [address] [place] [address] [phone] Lipid Profile 03/05/2014 Triglycerides 92 mg/dL N 39 (Trig/Chol/HD [address] L) [place] [address] [phone] Cholesterol 232 mg/dL N 40 HDL Cholesterol 91.5 mg/dL N 41 LDL Cholesterol 122 mg/dL N 42 Surgical Pathology 10/31/2013 S RUN DATE: [address] 11/01/ <[place] [address] NOTE> [phone] Laboratory test 06/19/2013 Ferritin 111 ng/mL 11- [address] [place] [address] [phone] Free T4 0.93 ng/mL 0.61-1.24 Free T3 2.37 pg/mL Low 2.39-6.79 TSH (Thyroid Stimulating Horm) 1.38 miu/mL 0.34-5.60 Iron & Iron Binding 06/19/2013 Iron 99 g/dL 28- [address] [place] [address] [phone] Unsaturated Iron Binding 274 g/dL Total Iron Binding Capacity 373 g/dL 250-450 % Iron Saturation 27 % 15-55 CBC Auto Diff 06/19/2013 White Blood 7.5 10^3/uL 4.8-10.[address] [place] [address] [phone] Red Blood Count 4.15 10^6/uL 4.0-5.4 Hemoglobin [...] 0-2 Nucleated Red Blood Cells % 0 Basic Metabolic Panel 03/13/2013 Sodium 142 mmol/L 133-145 [address] [place] [address] [phone] Potassium 4.8 mmol/L 3.5-5.0 Chloride 106 mmol/L 101-111 Co2 Carbon Dioxide 30.0 mmol/L 22-32 Anion Gap 6.0 mmol/L 2-11 Glucose 98 mg/dL 70-100 Blood Urea Nitrogen 17 mg/dL 6-24 Creatinine 1.00 mg/dL 0.50-1.40 BUN/Creatinine Ratio 17.0 8-20 Calcium 9.8 mg/dL 8.1-9.9 Egfr Non- 56.0 >60 Egfr 72.0 >60 44 Lipid Profile 03/13/2013 Triglycerides 107 mg/dL 40-200 (Trig/Chol/HDL) [address] [place] [address] [phone] Cholesterol 253 mg/dL High Less than 200 HDL Cholesterol 91 mg/dL High 40-60 45 Cholesterol/HDL Ratio 2.8 Average 1-4.44 LDL Cholesterol 140.6 High Less Than 100 46 Vitamin D, 25 10/08/2012 25-Hydroxy Vitamin <4.0 ng/ mL Hydroxy 101 [facility] D2 [place] [address] [phone] 25-Hydroxy Vitamin D3 55 ng/mL 25-Hydroxy Vitamin D Total 55 ng/mL 47 Laboratory test 03/02/2012 Food Demonstrator In House Hemoglobin A1c 5.5 5-7 finding Basic Metabolic 11/30/2011 Sodium 138 mmol/L 135- 145 Panel [address] [place] [address] [phone] Potassium 4.5 mmol/L 3.5-5.0 Chloride 103 mmol/L 101-111 Co2 (Carbon Dioxide) 29.0 mmol/L 22-32 Anion Gap 6.0 mmol/L 2-11 48 Glucose 101 mg/dL High 70-100 BUN 20 mg/dL 6-24 Creatinine 1.0 mg/dL 0.50-1.40 One Over Creatinine 1.00 BUN/Creatinine Ratio 20.0 8-20 Calcium 10.0 mg/dL High 8.1-9.9 eGFR Non- 56.4 > 60 eGFR 72.5 > 60 49 Lipid Panel - 11/30/2011 CPK (Creatine 265 U/L High 0-170 [address] Kinase) [place] [address] [phone] Comp Metabolic 11/30/2011 Sodium 137 135-[address] mmol/[place] [address] [phone] Potassium 4.5 mmol/L 3.5-5.0 Chloride 103 mmol/L [...] 81.9 > 60 53 Lipid Profile 11/30/2011 Triglyceride 79 mg/dL 40- 200 (Trig/Chol/HDL) [address] [place] [address] [phone] Cholesterol 282 mg/dL High Less Than 200 54 High Density Lipoprotein 91 mg/dL High 40-60 55 Cholesterol/HDL Ratio 3.10 AVERAGE 1-4.44 Low Density Lipoprotein 175 mg/dL High Less Than 100 56 Protime 11/30/2011 Inr 0.85 Low 0.88-1.[address] [place] [address] [phone] Protime 10.0 SEC Low 10.3-13.5 58 Laboratory test 11/30/2011 PTT (Aptt) 26.8 SEC 25.1-38.[address] [place] [address] [phone] Vitamin D,25 10/14/2011 25-Hydroxy <4.0 ng/mL () Hydroxy [facility] Vitamin D2 [place] [address] [phone] 25-Hydroxy Vitamin D3 56 ng/mL () 25-Hydroxy Vitamin D Total 56 ng/mL () 59 CBC W/Electronic 10/14/2011 White Blood 6.4 CUMM 4.8-10.[address] [place] [address] [phone] Red Cell Count 4.27 CUMM 4.2-5.4 Hemoglobin [...] Abs Basophils 0 0-0.2 Laboratory test 10/14/2011 Ferritin 114 NG/ML 11.0 -307 finding [address] [place] [address] [phone] Iron And Tibc 10/14/2011 Iron Total 117 g/dL 28- 170 [place] [address] [phone] Unsaturated Iron Binding 308 g/dL Total Iron Binding Capacity 425 g/dL 250-450 % Iron Saturation 28 % 15-55 Vitamin B12 And 10/14/2011 Vitamin B12 595 pg/mL 180-914 Folate Serum [address] [place] [address] [phone] Folic Acid > 25.6 NG/ML See Below 60 Laboratory test 10/14/2011 TSH 2.34 MIU/ML 0.34- 5.[address] [place] [address] [phone] Thyroxine Free 0.72 ng/dL 0.61-1.24 Ua Routine 10/14/2011 Ua Color YELLOW Yellow [address] [place] [address] [phone] Appearance-Urine CLEAR Clear Specific [place]-Ur 1.015 1.010-1.030 Esterase-Urine NEGATIVE Negative Nitrite NEGATIVE Negative Hqdbuieponwe-Ix-DDM NEGATIVE Negative Protein-Urine NEGATIVE Negative PH-Urine 7.5 5-9 Blood-Urine NEGATIVE Negative Ketones-Urine NEGATIVE Negative Bilirubin-Ur NEGATIVE Negative Glucose-Urine NEGATIVE Negative 1 Desirable: <150 Borderline High: 150-199 High: [...] its performance characteristics determined by [facility] in a manner consistent with CLIA requirements. This test has not been cleared or approved by the U.S. Food and Drug Administration. 7 ADDITIONAL INFORMATION Testing performed by Liquid Chromatography-Tandem Mass Spectrometry (LC-MS/MS). This test was developed and its performance characteristics determined by [facility] in a manner consistent with CLIA requirements. This test has not been cleared or approved by the U.S. Food and Drug Administration. Test Performed by: [facility] [place] [address] 8 Test Performed by: [facility] [place] [address] 9 REFERENCE VALUE Premenopausal: 15-350 (E2 levels vary widely through the menstrual cycle.) Postmenopausal: <10 ADDITIONAL INFORMATION This test was developed and its performance characteristics determined by [facility] in a manner consistent with CLIA requirements. This test has not been cleared or approved by the U.S. Food and Drug Administration. Test Performed by: [facility] [place] [address] 10 Because ethnic data is not always [...] 5 Kidney failure <15 (or dialysis) 21 [id number] 22 SEE RESULT BELOW Name: SHYLA DENNISON : [address]: Tao Carlos NP Acct: [id number] Unit: [id number] AGE: 66 Location: [facility] Re04/04/16 SEX: F Status: REG REF SPEC: [id number] ELAINE: 04/04/16-[address]: Tao Carlos [employer] REQ: [id number] RECD: 04/04/16 STATUS: SOUT _ ORDERED: THIN PREP NON G COMMENTS: [id number] FINAL DIAGNOSIS Urine, voided: Negative for malignant cells. URINE VOID GROSS DESCRIPTION 10 mls of clear yellow voided urine. Signed (signature on file) Shahbaz Ford MD 1547 END OF REPORT * ML=Testing performed at Main Lab DEPARTMENT OF PATHOLOGY, [address] [place] [address] Shahbaz Ford M.D. Director DEVORAH # [id number] 23 SEE RESULT BELOW Name: SHYLA DENNISON : [address]: Tao Carlos NP Acct: [id number] Unit: [id number] AGE: 66 Location: [facility] Re03/18/16 SEX: F Status: REG REF SPEC: [id number] ELAINE: 03/18/16-[address]: Tao Carlos NP REQ: [id number] RECD: 03/18/16770 STATUS: COMP _ SOURCE: URINE SPDESC: ORDERED: Urine Culture COMMENTS: [id number] Procedure Result Reported Site Urine Culture Final 03/20/16- 0847 ML No growth of clinically significant organisms * ML - MAIN LAB ([facility]) . END OF REPORT * ML=Testing performed at Main Lab DEPARTMENT OF PATHOLOGY, [address] [place] [address] Shahbaz Ford M.D. Director [facility] # [id number] 24 Test Performed by: [place] [address] Almond Huller: Marcos Nielsen II, M.D., Ph.D. 25 Test Performed by: [facility] [address], [place] [address] Almond Huller: Donna Sutton, Ph.D. 26 ADDITIONAL INFORMATION Units [...] Very High >189 43 RUN DATE: 11/01/13 LAB LIVE PAGE 1 RUN TIME: 1805 [address] [place], [place] [address] Specimen Inquiry Name: SHYLA DENNISON : [address]: Jaylen Kahn MD Acct: [id number] Unit: [id number] AGE: 63 Location: ENDO Re10/31/13 SEX: F Status: REG REF SPEC: [id number] ELAINE: 10/31/13- [facility] DR: Jaylen Kahn MD REQ: [id number] RECD: 10/31/130 STATUS: DUSTIN MITCHELL DR: Yanique Regan MD [...] performed at Main Lab DEPARTMENT OF PATHOLOGY, [address] [place] [address] Shahbaz Ford M.D. Director [facility] Permit #[id number] 44 Because ethnic data is not always [...] are 25-80 Test Performed by: [facility] [address] [address] Almond Huller: Toy Brandt III, M.D. 48 Anion gap [...] are 25-80 Test Performed by: [facility] Dpt of Lab Med and Pathology [address] [place], [place] [address] Almond Huller: Toy Brandt III, M.D. 60 Please note: New reference range, effective 08/04/11 NORMAL REFERENCE RANGE: GREATER THAN 4.1 NG/ML Procedures Date Code Description Status 09/26/2018 [id number] Bone Mineral Density Test Completed 04/06/2018 [id number] Mammogram Completed 02/02/2017 [id number] Mammogram Completed 04/19/2016 90991 ECHO Stress Test Incl Perf Contiuous ekg Monitoring Completed W/Phys Superv 04/01/2016 21186 EKG Tracing & Interpretation Completed 03/14/2016 82316 EKG Tracing & Interpretation Completed 01/25/2016 [id number] Mammogram Completed 03/30/2015 [id number] Bone Mineral Density Test Completed 01/22/2015 [id number] Mammogram Completed 01/08/2015 [id number] Mammogram Completed 02/24/2014 202182550 Diabetic Retinal Eye Exam Completed 01/23/2014 365814611 Diabetic Retinal Eye Exam Completed 01/21/2014 [id number] Mammogram Completed 10/31/2013 [id number] Colonoscopy Completed 04/04/2013 040344760 Bone Mineral Density Test Completed 03/11/2013 68830 EKG Tracing & Interpretation Completed 01/08/2013 [id number] Mammogram Completed 03/02/2012 73462 EKG Tracing & Interpretation Completed 12/21/2011 [id number] Mammogram Completed 08/14/2010 92421131 Colonoscopy Completed Encounters Type Date Location Provider Dx Diagnosis Office Visit 02/11/2019 [facility] Internal dIania Garcia, I10 Essential ( primary) 1:00p Medicine - Lei Grace hypertension E78.5 Hyperlipidemia, unspecified Office Visit 12/05/2018 9:20a [facility] Internal Chente E. H10.9 Unspecified Mundo Miranda M.D. conjunctivitis Ccmob Office Visit 10/02/2018 3:00p [facility] Mary Lou R63.5 Abnormal weight gain [facility] MADELIN Ramires F51.01 Primary insomnia N95.1 Menopausal and female climacteric states Office Visit 08/13/2018 DoNotUse [facility] Internal Idania Z00.00 Encntr for 1:00p Justino Garcia M.D. 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 nonspecific skin eruption Office Visit 07/31/2017 DoNotUse [facility] Internal Idania Z00.00 Encntr for 11:10a Justino Garcia M.D. general adult medical exam w/o abnormal findings I10 Essential (primary) hypertension G47.09 Other insomnia Office 01/19/2017 DoNotUse [facility] Internal Nurse Visit I10 Essential Visit 11:20a Justino C (primary) hypertension Office 12/27/2016 DoNotUse [facility] Internal Idania I10 Essential Visit 11:10a Justino Garcia M.D. (primary) hypertension Office 11/11/2016 [facility] Internal Medicine Nathan Burger Z48.02 Encounter for Visit 10:40a Rosas R DONNA Carlos removal of sutures Office 07/13/2016 [facility] K64.5 Perianal venous Visit 2:00p [facility] Braeden thrombosis MD Office 06/29/2016 DoNotUse [facility] Internal Idania I10 Essential Visit 11:50a Justino Garcia M.D. (primary) hypertension Office 04/26/2016 DoNotUse [facility] Internal Idania Z00.00 Encntr for Visit 11:10a Justino Garcia M.D. general adult medical exam w/o abnormal findings E78.0 Pure hypercholesterolemia I10 Essential (primary) hypertension Z23 Encounter for immunization Office Visit 04/06/2016 12:00p [facility] Nurse Visit R07.9 Chest pain, Of [facility] IC unspecified I10 Essential (primary) hypertension Office Visit 04/04/2016 11:20a [facility] Internal Tao Carlos, R35.0 Frequency of Medicine - Suite [employer] micturition R Office Visit 04/01/2016 3:00p [facility] Rick S. R07.9 Chest pain , Jeffers, DO unspecified FACC R94.31 Abnormal electrocardiogram [ECG] [EKG] Office Visit 03/18/2016 2:40p [facility] Internal Tao Carlos, N39.0 Urinary tract Medicine - Suite [employer] infection, site R not specified Office Visit 03/14/2016 11:50a [facility] Idania M54.14 Radiculopathy, Medicine - Lei Garcia M.D. 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 719.45 Pain Joint Pelvic Region & Thigh 724.6 Sacral Disorder Office Visit 03/26/2015 9:10a [facility] Idania V70.0 Examination Medicine - Lei Gracia M.D. General Medical Routine AT Health Care Facility 733.90 Bone & Cartilage Disorder Unspec 309.28 Adjustment Disorder With Anxiety/Depression 272.0 Hypercholesterolemia Pure 719.45 Pain Joint Pelvic Region & Thigh V03.82 Streptococcus Pneumoniae Vaccination Spec Other Office Visit 02/26/2015 2:30p [facility] Internal Tao Carlos, 796.2 Blood Pressure Medicine - [employer] Reading Elevated Suite R W/O Hypertension 300.00 Anxiety State Unspec Office Visit 07/29/2014 2:50p [facility] Internal Idania V65.9 Consultation Unspec Medicine - Sanjay Garcia Reason Ccmob 401.1 Hypertension Benign 790.6 Abnormal Blood Chemistry Other V05.3 Viral Hepatitis Vaccination & Inoculation Office Visit 03/12/2014 9:10a [facility] Internal Idania V70.0 Examination Medicine Nathan Garcia M.D. General Medical Routine AT Health Care Facility 401.1 Hypertension Benign 272.0 Hypercholesterolemia Pure 790.6 Abnormal Blood Chemistry Other Office Visit 09/11/2013 9:20a [facility] Luisa Regan, V76.51 Special Medicine - Lei Grace Screening For Malignant Neoplasms Colon 401.9 Hypertension Unspec 272.0 Hypercholesterolemia Pure Office Visit 03/11/2013 1:00p [facility] Luisa Regan, V70.0 Examination Medicine - [facility] Grace General Medical Routine AT Health Care Facility 733.90 Bone & Cartilage Disorder Unspec V06.1 Lpitckcehq-Iimxzxv-Hekzyikw Combined (DTaP) 426.4 Right Bundle Branch Block 272.0 Hypercholesterolemia Pure 401.9 Hypertension Unspec 793.19 Other Nonspec Abnormal Finding Of Lung Field Office Visit 06/04/2012 9:40a [facility] Luisa Regan, 401.9 Hypertension Unspec Medicine - M.DRico Ccmob 311 Depressive Disorder Not Elsewhere Spec V04.81 Need For Prophylactic Vaccination & Inoculation/Influenza V04.89 Need For Prophylactic Vaccination & Inoculation Other Virus Office Visit 03/02/2012 10:00a [facility] Luisa Regan, 401.9 Hypertension Unspec Medicine - M.DRico Ccmob 311 Depressive Disorder Not Elsewhere Spec 790.21 Impaired Fasting Glucose V70.0 Examination General Medical Routine AT Health Care Facility 780.52 Insomnia Unspecified 733.90 Bone & Cartilage Disorder Unspec 272.0 Hypercholesterolemia Pure Office Visit 11/23/2011 1:00p [facility] Luisa Regan, 782.7 Ecchymoses Medicine - [facility] M.Gabriela Spontaneous 401.9 Hypertension Unspec 455.3 Hemorrhoids External W/O Complication 311 Depressive Disorder Not Elsewhere Spec Office Visit 10/14/2011 10:00a [facility] Luisa Regan, 268.9 Vitamin D Medicine - [facility] MJustin Deficiency Unspec 281.9 Anemia Deficiency Unspec 401.9 Hypertension Unspec 311 Depressive Disorder Not Elsewhere Spec 272.4 Hyperlipidemia Other Unspec Plan of Treatment Future Appointment(s):08/19/2019 1:00 pm - Idania Garcia M.D. at [facility] Internal Medicine-Pjjyssgxc09/09/2019 - Idania aGrcia M.D.R10.815 Periumbilic abdominal tenderness
[2019-02-19] MEDS ORDERED: Cefepime 2 GM in Dextrose(*) 2 GM/50 ML BAG IV ONE (13:37)
[2019-02-19] MEDS ORDERED: NS 0.9% 1000 ML** 1,000 ML IV ONE (13:37)
[2019-02-19] MEDS ORDERED: metroNIDAZOLE IV 500 MG/100ML* 500 MG/100 ML BAG IVPB ONE (13:38)
--- NOTE | 2019-02-19 13:57 | ED ---
Abdominal Pain/Female - HPI Summary HPI Summary: This patient is a 69 year old F presenting to [facility] accompanied by her daughter with a chief complaint of ABD pain since yesterday. The patient rates the pain 7 /10 in severity. 2 weeks ago, patient's bowels changed from the usual constipation to loose stool. Yesterday, her friend took her out to eat breakfast and notes that it was a particularly fatty breakfast. After eating, she developed upper ABD pain that later travelled down to her lower ABD. She notes she could only sip water due to the pain. Symptoms aggravated by movement and eating. Symptoms alleviated by rest. Patient saw Dr. Garcia this morning and came to the ED afterwards. Patient reports fever, "lethargy", WHALEN, back pain , nausea and vomiting after taking Tums. Patient denies any chills, erythema of eyes, sore throat, CP, SOB, cough, dysuria, hematuria, myalgia, edema, rash, or dizziness. Pt has a hx of diverticulitis (2 episodes) and PSHx of tonsillectomy. She does not have hx of ulcers or black stool. She takes Lisinopril for HTN and Trazodone for sleep if needed. - History of Current Complaint Chief Complaint: EDAbdPain Stated Complaint: ABD PAIN COMMING FROM CT Time Seen by Provider: 02/19/19 13:25 Hx Obtained From: Patient, Family/Marriage And Family Therapist - daughter Hx From Patient Unobtainable Due To: Dementia - daughter ?: No Onset/Duration: Sudden Onset, Lasting Days - 1 Timing: Constant - 1 Severity Initially: Severe Severity Currently: Severe Pain Intensity: 7 Pain Scale Used: 0-10 Numeric Location: Other - initial pain at upper abdomen, travelled to lower abdomen later Radiates: No Aggravating Factor(s): Food, Movement Alleviating Factor(s): Nothing Associated Signs and Symptoms: Positive: Fever, Back Pain, Other: - positive - "lethargy", ABD pain negative - chills, erythema of eyes, sore throat, SOB, , dysuria, myalgia, edema, rash, or dizziness.. Negative: Cough, Chest Pain, Constipation, Blood in Stool, Nausea, Vomiting, Diarrhea Allergies/Adverse Reactions: Allergies Allergy/AdvReac Type Severity Reaction Status Date / Time Penicillins Allergy Anaphylatic Verified 02/19/19 12:30 Shock Home Medications: Home Medications Lisinopril TAB* [Prinivil TAB 5 MG*] 5 mg PO DAILY 02/19/19 [History Confirmed 02/19/19] Trazodone HCl 50 mg PO BEDTIME 02/19/19 [History Confirmed 02/19/19] PMH/Surg Hx/FS Hx/Imm Hx Previously Healthy: No Endocrine/Hematology History: Denies: Hx Diabetes Cardiovascular History: Denies: Hx Hypertension, Hx Pacemaker/ICD History: Denies: Hx Renal Disease Musculoskeletal History: Denies: Hx Osteoporosis Sensory History: Denies: Hx Hearing Aid Psychiatric History: Denies: Hx Panic Disorder - Cancer History Cancer Type, Location and Year: BASAL CELL Hx Chemotherapy: No Hx Radiation Therapy: No - Surgical History Surgical History: Yes Surgery Procedure, Year, and Place: tonsils/adenoids. basal cell removal upper chest Infectious Disease History: No Infectious Disease History: Denies: Traveled Outside the [place] in Last 30 Days - Family History Known Family History: Negative: Cardiac Disease - Social History Alcohol Use: Occasionally Hx Substance Use: No Substance Use Type: Reports: None Smoking Status (MU): Former Smoker Review of Systems Constitutional: Other - positive - "lethargy" Positive: Fever. Negative: Chills Negative: Erythema Negative: Sore Throat Negative: Chest Pain Negative: Shortness Of Breath, Cough Positive: Abdominal Pain, Vomiting, Nausea Negative: dysuria, hematuria Positive: Myalgia - positive - back pain . Negative: Edema Negative: Rash Neurological: Other - negative - dizziness Positive: Headache All Other Systems Reviewed And Are Negative: Yes Physical Exam - Summary Physical Exam Summary: Constitutional: Well-developed, Well-nourished, Alert. (-) Distressed Skin: Warm, Dry HENT: Normocephalic; Atraumatic Eyes: Conjunctiva normal Neck: Musculoskeletal ROM normal neck. (-) JVD, (-) Stridor, (-) Tracheal deviation Cardio: Rhythm regular, rate normal, Heart sounds normal; Intact distal pulses; The pedal pulses are 2+ and symmetric. Radial pulses are 2+ and symmetric. (-) Murmur Pulmonary/Chest wall: Effort normal. (-) Respiratory distress, (-) Wheezes, (-) Rales Abd: Diffuse tenderness with exquisite tenderness at epigastric area, Soft, (-) Distension, (-) Guarding, (-) Rebound Musculoskeletal: (-) Edema Lymph: (-) Cervical adenopathy Neuro: Alert, Oriented x3 Psych: Mood and affect Normal Triage Information Reviewed: Yes Vital Signs On Initial Exam: Initial Vitals Temp Pulse Resp BP Pulse Ox 99.3 F 108 16 136/82 99 02/19/19 12:27 02/19/19 12:27 02/19/19 12:27 02/19/19 12:27 02/19/19 12:27 Vital Signs Reviewed: Yes Diagnostics - Vital Signs Vital Signs Temp Pulse Resp BP Pulse Ox 02/19/19 12:27 99.3 F 108 16 136/82 99 - Laboratory Result Diagrams: 02/19/19 14:03 02/19/19 14:03 Lab Statement: Any lab studies that have been ordered have been reviewed, and results considered in the medical decision making process. Abdominal Pain Fem Course/Dx - Course Course Of Treatment: This patient is a 69 year old F presenting to [facility] accompanied by her daughter with a chief complaint of ABD pain since yesterday. The patient rates the pain 7/10 in severity. 2 weeks ago, patient's bowels changed from the usual constipation to loose stool. Yesterday, her friend took her out to eat breakfast and notes that it was a particularly fatty breakfast. After eating, she developed upper ABD pain that later travelled down to her lower ABD. She notes she could only sip water due to the pain. Symptoms aggravated by movement and eating. Symptoms alleviated by rest. Patient saw Dr. Garcia this morning and came to the ED afterwards. Patient reports fever, "lethargy", WHALEN, back pain, nausea and vomiting after taking Tums. Patient denies any chills, erythema of eyes, sore throat, CP, SOB, cough, dysuria, hematuria, myalgia, edema, rash, or dizziness. Pt has a hx of diverticulitis (2 episodes) and PSHx of tonsillectomy. She does not have hx of ulcers or black stool. She takes Lisinopril for HTN and Trazodone for sleep if needed. Phsyical exam shows diffuse tenderness with exquisite tenderness at epigastric. Lab results show MPV 6.6, absolute neuts 9.1, absolute lymphs 0.6, INR 1.13,. During the ED course, the patient was given Flagyl, Maxipime, and fluids. At 1354, Dr. Saucedo discusses patient's case with Dr. Kenny. Dr. Kenny is aware of the patient's condition will come to ED to evalute. 1406 - Dr. Kenny in ED to evaluate patient. - Diagnoses Provider Diagnoses: Acute appendicitis Is Visit Related: No - Provider Notifications Discussed Care Of Patient With: Darnell Kenny Time Discussed With Above Provider: 13:54 Instructed by Provider To: Other - Dr. Saucedo discusses patient's case with Dr. Kneny. Dr. Kenny is aware of the patient's condition. 1406 - Dr. Kenny in ED to evaluate patient. At 1430, Dr. Kenny, surgery, agrees to admit patient to surgical services. Discharge - Sign-Out/Discharge Documenting (check all that apply): Patient Departure - admit Patient Received Moderate/Deep Sedation with Procedure: No - Discharge Plan Condition: Guarded Disposition: ADMITTED TO [facility] - Billing Disposition and Condition Condition: GUARDED Disposition: Admitted to [facility] - Attestation Statements Document Initiated by Scribe: Yes Documenting Scribe: Nain Becerra Provider For Whom Scribe is Documenting (Include Credential): Dr. Too Saucedo MD Scribe Attestation: Nain Soliman scribed for Dr. Too Saucedo MD on 02/19/19 at 1607. Scribe Documentation Reviewed: Yes Provider Attestation: The documentation as recorded by the Nain aranda accurately reflects the service I personally performed and the decisions made by me, Dr. Too Saucedo MD Status of Scribe Document: Viewed
[2019-02-19 14:16] LABS: ABS Lymphocytes 0.6 10^3/ul (1.0-4.8); ABS Monocytes 0.6 10^3/ul (0-0.8); ABS Neutrophils 9.1 10^3/ul (1.5-7.7); Eosinophil % 0.4 %; Hematocrit 36 % (35-47); Hemoglobin 12.3 g/dL (12.0-16.0); Lymphocyte % 5.6 %; Mean Corpuscular HGB Conc 34 g/dL (31-36); Mean Corpuscular Hemoglobin 31 pg (27-31); Mean Corpuscular Volume 90 fL (80-97); Mean Platelet Volume 6.6 fL (7.4-10.4); Platelet Count 249 10^3/uL (150-450); Red Blood Count 3.98 10^6 /uL (3.70-4.87); Red Cell Distribution Width 13 % (10-15); White Blood Count 10.3 10^3/uL (3.5-10.8)
[2019-02-19 14:27] LABS: Activated Partial Thrombo Time 33.6 seconds (26.0-38.0); INR 1.13 (0.82-1.09)
[2019-02-19 14:56] LABS: Albumin 4.3 g/dL (3.2-5.2); Albumin/Globulin Ratio 1.3 (1-3); BUN/Creatinine Ratio 15.9 (8-20); C Reactive Protein 235.25 mg/L (<8.01); EGFR African American 77.1 (>60); EGFR Non-African American 63.7 (>60); Globulin 3.4 g/dL (2-4); Potassium 3.8 mmol/L (3.5-5.0); Total Bilirubin 1.2 mg/dL (0.2-1.0); Total Protein 7.7 g/dL (6.4-8.9)
[2019-02-19] MEDS ORDERED: Ondansetron INJ* 2 MG/ML VIAL ONE (17:17)
[2019-02-19] MEDS ORDERED: Ketorolac INJ* 30 MG/ML 1 ML VIAL ONE (17:17)
[2019-02-19] MEDS ORDERED: Midazolam* 1 MG/ML 5 ML VIAL (5 MG) ONE (17:17)
[2019-02-19] MEDS ORDERED: KETAMINE HCL* 50 MG/ML 10 ML VIAL ONE (17:17)
[2019-02-19] MEDS ORDERED: Cisatracurium* 2 MG/ML MDV 5 ML ONE (17:17)
[2019-02-19] MEDS ORDERED: Dexamethasone IV* 4 MG/ML 1 ML (4 MG) ONE (17:17)
[2019-02-19] MEDS ORDERED: Propofol* 10 MG/ML 20 ML BTL ONE (17:17)
[2019-02-19] MEDS ORDERED: fentaNYL* 50 MCG/ML 2 ML VIAL (100 MCG VIAL) ONE ×2 (17:17→18:36)
[2019-02-19] MEDS ORDERED: Phenylephrine 40 MCG/ML SYRINGE ONE (17:17)
[2019-02-19] MEDS ORDERED: Lidocaine 2% PF * 5 ML VIAL ONE (17:17)
[2019-02-19] MEDS ORDERED: Bupivacaine 0.25% W/EPI* 10 ML SDV ONE (17:23)
--- NOTE | 2019-02-19 18:32 | HP ---
HISTORY AND PHYSICAL: DATE OF ADMISSION: 02/19/19 ATTENDING SURGEONS: Joy Fountain MD; Darnell Kenny MD. REASON FOR ADMISSION: Perforated viscus, free intraperitoneal air. HISTORY OF PRESENT ILLNESS: Ms. Hayes is a very pleasant and healthy 69-year -old female who presented to the emergency room with complaints of one day of severe epigastric abdominal pain. The patient noted that she was in her fairly normal state of health until yesterday morning when after breakfast, she was eating something and then suddenly developed acute epigastric pain. She says that pain quickly began to radiate throughout her abdomen and she felt very weak and feverish throughout the day. She said she was not able to tolerate much food and that she tried to take some TUMS as well as a little bit of food, but she vomited once. She tried to see her primary care physician, but was not able to be seen until this morning. She was sent for a non contrast CT scan, which showed a small amount of free intraperitoneal air with some inflammation that was located around the duodenum and otherwise no other intraabdominal pathology noted. Currently the patient is very comfortable and has complaints of some abdominal pain, but she says it is not severe at this time. She does have a history of diverticulitis and she thinks that she may have had 2 episodes in the past, but she has never been hospitalized and she says they were very mild. She has no surgical history other than tonsillectomy. Of note , she has no history of peptic ulcer disease or excessive ibuprofen use. PAST MEDICAL HISTORY: None. PAST SURGICAL HISTORY: Tonsillectomy. MEDICATIONS: 1. Lisinopril 5 mg p.o. daily. 2. Trazodone 50 mg p.o. at bedtime. ALLERGIES: PENICILLIN causes anaphylaxis. FAMILY HISTORY: Negative for cardiac disease. SOCIAL HISTORY: The patient is a former smoker. REVIEW OF SYSTEMS: Positive for abdominal pain, vomiting, lethargy, and chills ; otherwise negative. PHYSICAL EXAMINATION GENERAL: Is a well appearing older woman lying comfortably in bed, conversing easily, and in no apparent distress. VITAL SIGNS: T-max is 101.7, T-current is 98.7, pulse is 97, respiratory rate is 22, O2 saturation is 97% O2 on room air, blood pressure is 150/85. HEENT: Normocephalic and atraumatic. LUNGS: Respiratory is clear to auscultation bilaterally. CARDIOVASCULAR: Regular rate and rhythm. ABDOMEN: Soft, minimally distended, tender in epigastric area. No rebound. EXTREMITIES: Show no edema. DIAGNOSTIC STUDIES/LABORATORY DATA: White blood cell count is 10.3, hemoglobin 12.3, hematocrit is 36, platelets 249. INR is 1.13. Sodium is 136, potassium 3.8, chloride is 100, creatinine is 0.88, glucose is 110, total bilirubin is 1.2, C- reactive protein is 235. Radiology: CT abdomen and pelvis has been reviewed. Noncontrast CT that shows a scant amount of free air at the duodenum. There is no significant colonic thickening, please see report for full details. ASSESSMENT/PLAN: Ms. Hayes is a very pleasant 69-year-old female who presented to the emergency room with one day of epigastric abdominal pain with findings of free air, and some thickening around her duodenum. This is concerning for perforated duodenum or other hollow viscus structure. The patient is currently stable. She has been intermittently febrile. She has received antibiotics in the emergency room and she will be taken to operating room by Dr. Kenny for a diagnostic laparoscopy, possible exploratory laparotomy, possible bowel resection, and most likely repair of a perforated duodenal ulcer. Dr. Kenny discussed with the patient the risks, benefits, and alternatives of the procedure. She understands and she wishes to proceed. [id number]/CPS #: [id number] MTDD
[2019-02-19] MEDS ORDERED: fentaNYL* 50 MCG/ML 2 ML VIAL (100 MCG VIAL) IV PRN (19:03)
[2019-02-19] MEDS ORDERED: Naloxone* 0.4 MG/ML 1 ML VIAL IV PRN (19:03)
[2019-02-19] MEDS ORDERED: Ondansetron INJ* 2 MG/ML VIAL IV PRN ×2 (19:03→19:34)
[2019-02-19] MEDS ORDERED: HYDROmorphone INJ1* 1 MG/ML SYRINGE IV SLOW PU PRN (19:34)
[2019-02-19] MEDS ORDERED: Ketorolac INJ* 30 MG/ML 1 ML VIAL IV PRN (19:34)
[2019-02-19] MEDS: Famotidine IV* 10 MG/ML 2 ML (20 mg) IV SLOW PU SCH (21:31)
[2019-02-19] MEDS: Lactated Ringers 1000 ML Bag* 1,000 ML IV SCH (21:32)
[2019-02-19] MEDS ORDERED: traZODone TAB* 50 MG TAB PO ONE (23:00)
--- NOTE | 2019-02-19 23:39 | OP ---
CC: Idania Garcia M.D.* DATE OF OPERATION: 02/19/19 - ROOM #347 DATE OF : 50 SURGEON: Dr. Kenny. MODELING INSTRUCTOR: Aziza Marmolejo NP. ANESTHESIOLOGIST: Andrea Blas M.D. ANESTHESIA: General endotracheal. PRE-OP DIAGNOSES: Upper abdominal pain and free air. POST-OP DIAGNOSES: Upper abdominal pain and free air. OPERATIVE PROCEDURE: Laparoscopic surgical exploration of the abdomen with appendectomy. ESTIMATED BLOOD LOSS: Less than 10 mL. IV FLUIDS: Crystalloid. SPECIMENS: Appendix. DRAINS: None. COMPLICATIONS: None. COUNTS: The instrument, needle, and sponge counts were correct. DESCRIPTION OF PROCEDURE: The patient was brought to the operating room and placed on the table supine. Sequential compression devices were placed on both lower extremities. General anesthesia was administered. A Hernandez catheter was placed. She was positioned and padded appropriately. She then received appropriate intravenous antibiotics from the emergency room. She was prepped and draped in the usual sterile fashion and a time-out was performed. Local anesthetic was infiltrated into the skin and soft tissue prior to make each incision. A supraumbilical incision was created transversely using an open technique. The cavity was accessed and a 5-mm trocar was placed. Carbon dioxide was insufflated to a pressure of 15 mmHg. Under direct visualization, a 5-mm trocar was placed in the left upper quadrant and further laterally and superiorly left upper quadrant, an 11-mm trocar was placed. The inspection of the abdominal cavity revealed that there was some fluid in the right lateral gutter and above the liver. Initially, it was thought that this might be bilious fluid and the left lobe of the liver was elevated and in the area of duodenum, there was a small area of fibrinous exudate. This was actually superior to the duodenum itself. The anterior surface of the duodenum in this area appeared normal as did the anterior area of the pyloric channel of the anterior stomach. The gallbladder was densely adherent to the duodenum and this became the initial focus to free this off of the anterior duodenum thinking there may be an anterior ulcer in this location. In order to achieve the freeing of the gallbladder, fourth trocar was placed in the right upper quadrant. The gallbladder wall was not inflamed and the gallbladder fundus was grasped and retracted cephalad, and then the gallbladder was freed from the adhesions to the duodenum using sharp dissection with care not to injure either structure. After completing this dissection, a careful inspection of the anterior duodenum was performed and again there appeared to be no abnormality. The right lobe of the liver was inspected down to the undersurface and there appeared to be no abnormality. There appeared to some edema within the tissues of the retroperitoneum to the right lateral aspect of the duodenum, but the duodenum itself could be visualized by drawing down the omentum and there did not appear to be any bile staining or abnormality noted there. At this point, it was decided to run the small bowel and this was done by elevating the omentum and transverse colon identifying the ligament of Treitz. The small bowel was run [id number] and there were couple of small white nodules noted at two points. These appeared to be couple of millimeters in size, but otherwise no abnormalities noted and the small bowel did not appear dilated or erythematous. In the area of the distal jejunum, there was what appeared to be some benign appearing, almost gelatinous cystic lesions on the mesenteric aspect, but these almost looked like peritoneal cysts and were left undisturbed. The small bowel was run completely to the ileocecal valve and again it all appeared normal. The appendix was inspected and it appeared to have some chronic changes and appeared dilated at its tip. It was felt this would need to be removed. Due to this, an 11-mm port was changed to a 12-mm port, and the endoscopic stapler was used to divide the appendix at its base with an EndoGIA stapler with a rivera cartridge and then the mesentery was divided with an EndoGIA stapler with de jesus cartridge. The appendix was placed in endoscopic retrieval bag and retrieved through the port site in the left upper quadrant. It was submitted to Pathology. The inspection turned to the pelvis. There was some murky fluid there. It was not bilious appearing. It was aspirated from the abdomen and irrigation was performed. There was normal appearance to the right and left adnexa with no ovarian masses noted. The uterus appeared small and normal. The anterior rectum was normal. There was redundant sigmoid. There were large diverticula noted. There was no evidence of diverticulitis. This large bowel was inspected along its entirety of the descending colon to the splenic flexure and across the transverse and then back down to the cecum. Lastly, it was decided to inspect the lesser sac and this was performed by elevating the stomach and dividing the gastric colic ligament with LigaSure and then the lesser sac was entered bluntly and inspection there revealed no evidence of inflammation, no collection of bile or fluids. At this point, it was decided that the operation would be concluded. Lavage was performed in the right upper quadrant above the liver, below the liver, and in the pelvis until clear. The ports were removed. The left upper quadrant 12 mm port site was closed with 0-Vicryl to approximate the fascia. The skin incisions were all closed with 4-0 Monocryl in subcuticular fashion. Steri-Strips were applied. The patient tolerated the procedure well. She was extubated and transferred to the recovery room in stable condition. [id number]/CPS #: [id number] MTDD
[2019-02-20 05:06] LABS: Urine Appearance Clear; Urine Bacteria Absent (Absent); Urine Bilirubin Negative (Negative); Urine Blood 2+ (Negative); Urine Color Yellow; Urine Glucose Negative (Negative); Urine Ketones 1+ (Negative); Urine Nitrite Negative (Negative); Urine Protein Negative (Negative); Urine Red Blood Cell 2+(6-10/hpf) (Absent); Urine Specific Gravity 1.015 (1.010-1.030); Urine Urobilinogen Negative (Negative); Urine White Blood Cell 1+(6-10/hpf) (Absent)
[2019-02-20] MEDS: Heparin VIAL(*) 5000 UNITS/ML VIAL (FIVE THOUSAND) SUBCUT SCH ×2 (05:40→14:21)
[2019-02-20] MEDS: Lactated Ringers 1000 ML Bag* 1,000 ML IV SCH (05:42)
[2019-02-20 05:43] LABS: ABS Lymphocytes 0.6 10^3/ul (1.0-4.8); ABS Monocytes 0.5 10^3/ul (0-0.8); ABS Neutrophils 6.2 10^3/ul (1.5-7.7); Hematocrit 29 % (35-47); Hemoglobin 10.1 g/dL (12.0-16.0); Mean Corpuscular HGB Conc 34 g/dL (31-36); Mean Corpuscular Hemoglobin 31 pg (27-31); Mean Corpuscular Volume 90 fL (80-97); Mean Platelet Volume 6.5 fL (7.4-10.4); Platelet Count 191 10^3/uL (150-450); Red Blood Count 3.24 10^6 /uL (3.70-4.87); Red Cell Distribution Width 13 % (10-15); White Blood Count 7.4 10^3/uL (3.5-10.8)
[2019-02-20 05:56] LABS: C Reactive Protein 205.42 mg/L (<8.01); Calcium 8.5 mg/dL (8.6-10.3); EGFR African American 92.7 (>60); EGFR Non-African American 76.6 (>60)
[2019-02-20] MEDS: Famotidine IV* 10 MG/ML 2 ML (20 mg) IV SLOW PU SCH (08:19)
--- NOTE | 2019-02-20 09:24 | PN ---
Progress Note - Progress Note Date of Service: 02/20/19 SOAP: Subjective: She has incisional pain but RUQ pain is resolved. No N/V. Got Toradol but no narcotics. Wants to walk. Discussed findings at surgery. Objective: Vital Signs Temp 98.8 F 02/20/19 07:42 Pulse 67 02/20/19 07:42 Resp 18 02/20/19 08:00 BP 107/63 02/20/19 07:42 Pulse Ox 98 02/20/19 08:00 Gen: NAD Abd: ND; incision c/d/i; no erythema; soft; tender LUQ incision. Intake & Output 02/19/19 02/20/19 02/20/19 18:59 06:59 18:59 Intake Total 1200 2780 Output Total 100 375 100 Balance 1100 2405 -100 Weight 139 lb 139 lb Intake: IV Fluids 1200 2780 LR 2780 Oral 0 Output: Hernandez 375 100 Residual 100 Hernandez 16 Fr 100 Other: # Bowel Movements 0 Laboratory Results - last 24 hr 02/19/19 02/19/19 02/19/19 14:03 14:03 14:03 WBC 10.3 RBC 3.98 Hgb 12.3 Hct 36 MCV 90 MCH 31 MCHC 34 RDW 13 Plt Count 249 MPV 6.6 L Neut % (Auto) 88.4 Lymph % (Auto) 5.6 [place] % (Auto) 5.4 Eos % (Auto) 0.4 Baso % (Auto) 0.2 Absolute Neuts (auto) 9.1 H Absolute Lymphs (auto) 0.6 L Absolute Monos (auto) 0.6 Absolute Eos (auto) 0.0 Absolute Basos (auto) 0.0 Absolute Nucleated RBC 0.0 Nucleated RBC % 0.0 INR (Anticoag Therapy) APTT Sodium 136 Potassium 3.8 Chloride 100 L Carbon Dioxide 26 Anion Gap 10 BUN 14 Creatinine 0.88 Est GFR ( Amer) 77.1 Est GFR (Non-Af Amer) 63.7 BUN/Creatinine Ratio 15.9 Glucose 110 H Lactic Acid 0.8 Calcium 10.0 Total Bilirubin 1.20 H AST 16 ALT 20 Alkaline Phosphatase 48 C-Reactive Protein 235.25 H Total Protein 7.7 Albumin 4.3 Globulin 3.4 Albumin/Globulin Ratio 1.3 Lipase 52 Urine Color Urine Appearance Urine pH Ur Specific [place] Urine Protein Urine Ketones Urine Blood Urine Nitrate Urine Bilirubin Urine Urobilinogen Ur Leukocyte Esterase Urine WBC (Auto) Urine RBC (Auto) Urine Bacteria Urine Glucose Blood Type Antibody Screen 02/19/19 02/19/19 02/19/19 14:03 14:03 21:38 WBC RBC Hgb Hct MCV MCH MCHC RDW Plt Count MPV Neut % (Auto) Lymph % (Auto) [place] % (Auto) Eos % (Auto) Baso % (Auto) Absolute Neuts (auto) Absolute Lymphs (auto) Absolute Monos (auto) Absolute Eos (auto) Absolute Basos (auto) Absolute Nucleated RBC Nucleated RBC % INR (Anticoag Therapy) 1.13 H APTT 33.6 Sodium Potassium Chloride Carbon Dioxide Anion Gap BUN Creatinine Est GFR ( Amer) Est GFR (Non-Af Amer) BUN/Creatinine Ratio Glucose Lactic Acid 0.6 Calcium Total Bilirubin AST ALT Alkaline Phosphatase C-Reactive Protein Total Protein Albumin Globulin Albumin/Globulin Ratio Lipase Urine Color Urine Appearance Urine pH Ur Specific [place] Urine Protein Urine Ketones Urine Blood Urine Nitrate Urine Bilirubin Urine Urobilinogen Ur Leukocyte Esterase Urine WBC (Auto) Urine RBC (Auto) Urine Bacteria Urine Glucose Blood Type A Positive Antibody Screen Negative 02/20/19 02/20/19 02/20/19 04:37 05:24 05:24 WBC 7.4 RBC 3.24 L Hgb 10.1 L Hct 29 L MCV 90 MCH 31 MCHC 34 RDW 13 Plt Count 191 MPV 6.5 L Neut % (Auto) 84.7 Lymph % (Auto) 8.0 [place] % (Auto) 7.2 Eos % (Auto) 0.0 Baso % (Auto) 0.1 Absolute Neuts (auto) 6.2 Absolute Lymphs (auto) 0.6 L Absolute Monos (auto) 0.5 Absolute Eos (auto) 0.0 Absolute Basos (auto) 0.0 Absolute Nucleated RBC 0.0 Nucleated RBC % 0.0 INR (Anticoag Therapy) APTT Sodium 137 Potassium 4.0 Chloride 106 Carbon Dioxide 26 Anion Gap 5 BUN 15 Creatinine 0.75 Est GFR ( Amer) 92.7 Est GFR (Non-Af Amer) 76.6 BUN/Creatinine Ratio 20.0 Glucose 137 H Lactic Acid Calcium 8.5 L Total Bilirubin AST ALT Alkaline Phosphatase C-Reactive Protein 205.42 H Total Protein Albumin Globulin Albumin/Globulin Ratio Lipase Urine Color Yellow Urine Appearance Clear Urine pH 5.0 Ur Specific [place] 1.015 Urine Protein Negative Urine Ketones 1+ A Urine Blood 2+ A Urine Nitrate Negative Urine Bilirubin Negative Urine Urobilinogen Negative Ur Leukocyte Esterase Negative Urine WBC (Auto) 1+(6-10/hpf) A Urine RBC (Auto) 2+(6-10/hpf) A Urine Bacteria Absent Urine Glucose Negative Blood Type Antibody Screen Assessment: POD#1 s/p lap surg exploration for upper abd pain/free air on CT=>no perforation found. Improved. Plan: Will complete UGI xray and if normal then adv diet. Likely will be able to discharged later today. Reviewed expectations regarding recovery, f/u and return to normal activities. All questions answered.
[2019-02-20 15:56] VITALS: BP 114/61
--- NOTE | 2019-02-20 21:07 | DS ---
CC: Dr. Garcia at [facility] * DISCHARGE SUMMARY: DATE OF ADMISSION: 02/19/19 DATE OF DISCHARGE: 02/20/19 ATTENDING SURGEON: Dr. Darnell Kenny * (MADELIN Shankar, dictating). HOSPITAL COURSE: Please refer to admission history and physical and operative note for details. Briefly, the patient was admitted with abdominal pain and findings of intraabdominal free-air with concern for perforated duodenal ulcer. She underwent diagnostic laparoscopy on 02/19/[address] Kenny. Findings at that time were essentially normal other than a small area of fibrinous exudate in the area of the duodenum and what appeared to be gelatinous cystic lesions on the mesenteric aspect of the distal jejunum. The appendix appeared to have some chronic changes and therefore appendectomy was performed. Postoperatively, the patient has had an uneventful postoperative course and was seen this morning by Dr. Kenny. An upper GI was done in the morning of postoperative day #1 and showed trace of the pneumomediastinum that had been present on the most recent CT. The radiologist described temporary contrast hold up in the patulous duodenal bulb but no evidence of leakage. Instructions regarding diet, wound care, and activity were reviewed. She has a followup appointment scheduled with Dr. Kenny on 02/28/19. She will resume her usual medications. She declined any narcotics analgesic prescription. The patient is discharged to home in good condition. MADELIN SHANKAR [id number]/[facility] #: [id number] MTDD
== END 2019-02-20 17:15 | disposition home or self-care (01) ==
LOC: ED 12:24 → OR 15:12 → SSU 21:12 → INTOOBSV 21:12
PROVIDERS: ADMIT Surgery; ATTEND Surgery
DX: R10.10 Upper abdominal pain, unspecified (principal); K66.8 Other specified disorders of peritoneum; Z87.891 Personal history of nicotine dependence; R50.9 Fever, unspecified; Z88.0 Allergy status to penicillin; K35.80 Unspecified acute appendicitis
CPT/HCPCS: 36415; 74246; 80048; 80053; 81003; 81015; 83605; 83690; 85025; 85610; 85730; 86140; 86850; 86900; 86901; 87086; 88304; 96365; 96372; 96375; 99284; A9270-GY; G0378; J0692; J1100; J1644; J1885; J2250; J2405; J2704; J3010; J3490

== ENCOUNTER 2019-10-21 14:06 | Emergency (ER) | payer MEDICARE ==
[2019-10-21 14:23] VITALS: BP 131/86
--- NOTE | 2019-10-21 14:53 | UC ---
Bite Injury/Animal HPI - HPI Summary HPI Summary: 69 year old female with PMH + for HTN presents with animal bite while walking this afternoon. Dog not on a leash, chased after patient, bite at wrist. full ROM of hand, no numbness/ tingling. Information about dog sugar controller available , owners son out with dog, walking him, not on a leash. No other injuries. - History of Current Complaint Chief Complaint: UCBiteInjury Stated Complaint: DOG BITE Time Seen by Provider: 10/21/19 14:45 Hx Obtained From: Patient, Family/Spool Salvager - ?: No Severity Currently: Mild Severity Initially: Mild Pain Intensity: 2 Pain Scale Used: 0-10 Numeric Onset/Duration: Sudden Onset, Lasting Hours - animal bite Has Animal Been Immunized?: Yes - per sugar controller Character: Puncture - dog bite puncture at volar palm, Abrasion/Laceration - dorsal wrist x 2 Hx of Bite: Unprovoked Animal Available for Observation: Yes Animal Control Notified: Yes - Allergies/Home Medications Allergies/Adverse Reactions: Allergies Allergy/AdvReac Type Severity Reaction Status Date / Time Penicillins Allergy Anaphylatic Verified 10/21/19 14:23 Shock Home Medications: Home Medications Lisinopril TAB* [Prinivil TAB 5 MG*] 5 mg PO DAILY 02/19/19 [History Confirmed 10/21/19] DOXYcycline CAP(*) [DOXYcycline 100MG CAP(*)] 100 mg PO BID #10 cap 10/21/19 [Rx ] PMH/Surg Hx/FS Hx/Imm Hx Previously Healthy: Yes Cardiovascular History: Hypertension - Surgical History Surgical History: Yes Surgery Procedure, Year, and Place: Tonsils/adenoids appy. Basal cell removal upper chest. D&C - Family History Known Family History: Positive: Non-Contributory Negative: Cardiac Disease - Social History Alcohol Use: Daily Substance Use Type: None Smoking Status (MU): Former Smoker - Immunization History Most Recent Influenza Vaccination: 2018 Most Recent Pneumonia Vaccination: Pt had it Review of Systems All Other Systems Reviewed And Are Negative: Yes Constitutional: Positive: Negative Skin: Positive: Other - laceration left hand, wrist Eyes: Positive: Negative Motor: Positive: Negative Neurovascular: Positive: Negative Musculoskeletal: Positive: Myalgia - mild Neurological/Mental Status: Positive: Negative Psychological: Positive: Negative Is Patient Immunocompromised?: No Physical Exam Triage Information Reviewed: Yes Appearance: Well-Appearing, No Pain Distress, Well-Nourished Vital Signs: Initial Vital Signs Temp 98.0 F 10/21/19 14:20 Pulse 86 10/21/19 14:20 Resp 18 10/21/19 14:20 BP 131/86 10/21/19 14:20 Pulse Ox 98 10/21/19 14:20 Vital Signs Reviewed: Yes Eyes: Positive: Conjunctiva Clear ENT: Positive: Hearing grossly normal Musculoskeletal: Positive: Strength Intact - L hand, wrist, ROM Intact - L hand , wrist, Edema @ - minimal around laceration sites. Neurological: Positive: Alert, Other: - SITLT distal to L wrist,strength good with OK sign, full finger strength. Continuous Improvement Coordinator sterngth = B/L. rad/ ulnar pulses 2+ . no TTP throughout DIPs, PIPs MCP. no scaphoid tenderness. Psychological Exam: Normal Psychological: Positive: Normal Response To Family Skin: Positive: Other - laceration x 3- dorsal wrist 2 superficial abrasions, ~ 1cm x 3mm and 2cm x 3mm. third volar palm, puncture wound, ~ 2mm. Bite Injury Course/Dx - Course Course Of Treatment: lacerations, one puncture, base seen, no possibility for teeth embedded. [facility]- Spoke with Liz # [phone] - Health department will contact the owners, dog will be placed on a 10 day observation for rabies. They will contact you if they feel there is any reason why you would need vaccination sooner. Currently classified as very low risk. - Doxycycline to prevent infection - Keep area clean, wash with mild soap, antibiotic ointment twice daily to wounds, keep bandaged - Go to ER with redness, decreased movement of hand/ wrist/ fingers, drainage - Tetanus booster given today. - Differential Dx/Diagnosis Differential Diagnosis/HQI/PQRI: Laceration Provider Diagnosis: Laceration Discharge ED - Sign-Out/Discharge Documenting (check all that apply): Patient Departure All imaging exams completed and their final reports reviewed: No Studies - Discharge Plan Condition: Good Disposition: HOME Prescriptions: DOXYcycline CAP(*) [DOXYcycline 100MG CAP(*)] 100 mg PO BID #10 cap Patient Education Materials: Animal Bite (ED) [facility]errals[facility] [Outside] Idania Garcia MD [Primary Care Provider] - Additional Instructions: [facility]- Spoke with Liz # [phone] - Health department will contact the owners, dog will be placed on a 10 day observation for rabies. They will contact you if they feel there is any reason why you would need vaccination sooner. Currently classified as very low risk. - Doxycycline to prevent infection - Keep area clean, wash with mild soap, antibiotic ointment twice daily to wounds, keep bandaged - Go to ER with redness, decreased movement of hand/ wrist/ fingers, drainage - Tetanus booster given today. - Billing Disposition and Condition Condition: GOOD Disposition: Home
[2019-10-21] MEDS ORDERED: Tetan/Diph/Pertus SYR(Tdap)* 0.5 ML SYR(BOOSTRIX) use SYR contains LATEX IM ONE (15:03)
== END 2019-10-21 15:40 | disposition home or self-care (01) ==
LOC: UCEAST 14:06
DX: S61.512A Laceration without foreign body of left wrist, initial encounter (principal); Z88.0 Allergy status to penicillin; I10 Essential (primary) hypertension; Z79.899 Other long term (current) drug therapy; W54.0XXA Bitten by dog, initial encounter; Y92.9 Unspecified place or not applicable
CPT/HCPCS: 90471; 90715; 99212; G0463